=== PATIENT | female | born 1935 | race Caucasian/White ===

== ENCOUNTER 2017-10-26 10:31 | Emergency (ER) | payer MEDICARE, BC ==
--- NOTE | 2017-10-26 11:09 | Emergency Department Record ---
History of Present Illness - General Chief complaint: Extremity Problem Stated complaint: FALL/L HAND INJURY Time Seen by Provider: 10/26/17 11:02 Source: Patient Mode of Arrival: Ambulatory Limitations: No limitations - History of Present Illness Initial comments: pt fell yesterday injuring l shoulder and hand and scraped elbow. it continues to hurt Complaint: Extremity pain Location: Left, Elbow, Hand, Shoulder History of Same: No Radiation: None Quality: Aching Consistency: Constant Improves with: Nothing Worsens with: Nothing, Palpation Associated Symptoms: Denies other symptoms - Related Data Home Medications Medication Instructions Recorded Confirmed Last Taken Tramadol HCl 50 mg PO BID 10/26/17 10/26/17 10/26/17 07:00 Previous Rx's Medication Instructions Recorded Prednisone [Prednisone 20Mg] 40 mg PO DAILY #6 tab 04/01/14 Cephalexin [Keflex] 500 mg PO TID #21 cap 10/26/17 Allergies Allergy/AdvReac Type Severity Reaction Status Date / Time No Known Drug Allergies Allergy Verified 10/26/17 11:18 Review of Systems Reviewed: No additional complaints except as noted below Constitutional: Reports: As per HPI. Denies: Chills, Fever, Malaise, Night sweats, Weakness, Weight change Eyes: Reports: As per HPI. Denies: Eye discharge, Eye pain, Photophobia, Vision change ENT: Reports: As per HPI. Denies: Congestion, Dental pain, Ear pain, Epistaxis , Hearing loss, Throat pain Respiratory: Reports: As per HPI. Denies: Cough, Dyspnea, Hemoptysis, Stridor, Wheezes Cardiovascular: Reports: As per HPI. Denies: Arrhythmia, Chest pain, Dyspnea on exertion, Edema, Murmurs, Orthopnea, Palpitations, Paroxysmal nocturnal dyspnea, Rheumatic Fever, Syncope Endocrine: Reports: As per HPI. Denies: Fatigue, Heat or cold intolerance, Polydipsia, Polyuria Gastrointestinal: Reports: As per HPI. Denies: Abdominal pain, Constipation, Diarrhea, Hematemesis, Hematochezia, Melena, Nausea, Vomiting Genitourinary: Reports: As per HPI. Denies: Abnormal menses, Discharge, Dyspareunia, Dysuria, Frequency, Hematuria, Incontinence, Retention, Urgency Musculoskeletal: Reports: As per HPI. Denies: Arthralgia, Back pain, Gout, Joint swelling, Myalgia, Neck pain Skin: Reports: As per HPI. Denies: Bruising, Change in color, Change in hair/ nails, Lesions, Pruritus, Rash Neurological: Reports: As per HPI. Denies: Abnormal gait, Confusion, Headache, Numbness, Paresthesias, Seizure, Tingling, Tremors, Vertigo, Weakness Psychiatric: Reports: As per HPI. Denies: Anxiety, Auditory hallucinations, Depression, Homicidal thoughts, Suicidal thoughts, Visual hallucinations Hematological/Lymphatic: Reports: As per HPI. Denies: Anemia, Blood Clots, Easy bleeding, Easy bruising, Swollen glands Past Medical History - SOCIAL HISTORY Smoking Status: Former smoker - RESPIRATORY Hx Respiratory Disorders: Yes Hx Bronchitis: Yes Hx COPD: Yes - CARDIOVASCULAR Hx Cardio Disorders: Yes Hx Hypertension: Yes - NEURO Hx Neuro Disorders: No - GI Hx GI Disorders: No - Hx Genitourinary Disorders: No - ENDOCRINE Hx Endocrine Disorders: Yes Hx Diabetes: Yes - MUSCULOSKELETAL Hx Musculoskeletal Disorders: Yes Hx Arthritis: Yes Hx Back Injury: Yes - PSYCH Hx Psych Problems: Yes Hx Anxiety: Yes Hx Depression: Yes - HEMATOLOGY/ONCOLOGY Hx Hematology/Oncology Disorders: No Family Medical History Hx Cancer: Father Hx Heart Disease: Mother Physical Exam - General General Appearance: Alert, Oriented x3, Cooperative, Mild distress - Head Head exam: Normal inspection - Eye Eye exam: Normal appearance, PERRL, EOMI Pupils: Normal accommodation - ENT ENT exam: Normal exam, Mucous membranes moist, Normal external ear exam, Normal orophraynx Ear exam: Normal external inspection. negative: External canal tenderness Nasal Exam: Normal inspection. negative: Discharge, Sinus tenderness Mouth exam: Normal external inspection, Tongue normal Teeth exam: Normal inspection. negative: Dental caries Throat exam: Normal inspection. negative: Tonsillar erythema, Tonsillar exudate - Neck Neck exam: Normal inspection, Full ROM. negative: Tenderness - Respiratory Respiratory exam: Normal lung sounds bilaterally. negative: Respiratory distress - Cardiovascular Cardiovascular Exam: Regular rate, Normal rhythm, Normal heart sounds - GI/Abdominal GI/Abdominal exam: Soft, Normal bowel sounds. negative: Tenderness - Rectal Rectal exam: Deferred - exam: Deferred - Extremities Extremities exam: Normal inspection, Full ROM, Normal capillary refill, Tenderness Image of Full Body: 1 - tender 2 - tender 3 - erythema and abrasion - Back Back exam: Reports: Normal inspection, Full ROM. Denies: Muscle spasm, Rash noted, Tenderness - Neurological Neurological exam: Alert, CN II-XII intact, Oriented X3, Other (wheelchair bound ) - Psychiatric Psychiatric exam: Normal affect, Normal mood - Skin Skin exam: Dry, Intact, Normal color, Warm Disposition Disposition: Discharge Clinical Impression: Multiple contusions Cellulitis Qualifiers: Site of cellulitis: extremity Site of cellulitis of extremity: upper extremity Laterality: left Qualified Code(s): L03.114 - Cellulitis of left upper limb Disposition: Home, Self-Care Condition: (1) Good Instructions: Contusion in Adults (ED), Cellulitis (ED) Additional Instructions: follow up with family doctor. return sooner if worse. Prescriptions: Cephalexin [Keflex] 500 mg PO TID #21 cap Forms: Patient Portal Access Quality - Quality Measures Quality Measures: N/A - Blood Pressure Screening Does Patient Have Any of the Following: No Blood Pressure Classification: Normal BP Reading Systolic Measurement: 117 Diastolic Measurement: 48 Screening for High Blood Pressure: < Normal BP, F/U Not Required > [G8783]
[2017-10-26] MEDS ORDERED: TRAMADOL HCL 50 MG TABLET PO ONE (12:07)
--- NOTE | 2017-10-26 12:12 | RADIOLOGY REPORT ---
DATE: 10/26/2017. EXAM: LEFT SHOULDER. HISTORY: Shoulder pain. TECHNIQUE: Three views of the left shoulder. COMPARISON: None. ENCOUNTER: Initial. FINDINGS: Osteopenia. Negative for fracture or dislocation. Moderate degenerative changes. Possible loose bodies of the glenohumeral joint. IMPRESSION: OSTEOPENIA WITH MODERATE DEGENERATIVE CHANGE. POSSIBLE LOOSE BODIES. JOB NUMBER: [id number] MTDD
--- NOTE | 2017-10-26 12:14 | RADIOLOGY REPORT ---
DATE: 10/26/2017. EXAM: LEFT HAND. HISTORY: Pain. TECHNIQUE: Three views of the left hand. COMPARISON: None. ENCOUNTER: Initial. FINDINGS: Osteopenia. Advanced degenerative changes throughout the hand and wrist, especially the first carpometacarpal joint. No radiographic evidence for acute fracture or dislocation. Soft tissues are unremarkable. IMPRESSION: OSTEOPENIA WITH DEGENERATIVE CHANGE. JOB NUMBER: [id number] MTDD
== END 2017-10-26 12:22 | disposition home or self-care (01) ==
LOC: ER 10:31
DX: S40.012A Contusion of left shoulder, initial encounter (principal); S60.222A Contusion of left hand, initial encounter; L03.114 Cellulitis of left upper limb; E11.9 Type 2 diabetes mellitus without complications; I10 Essential (primary) hypertension; Z87.891 Personal history of nicotine dependence; W19.XXXA Unspecified fall, initial encounter
CPT/HCPCS: 99283

== ENCOUNTER 2018-09-14 14:26 | Inpatient (IN) | payer MEDICARE, BC ==
--- NOTE | 2018-09-14 14:43 | Emergency Department Record ---
History of Present Illness - General Chief Complaint: Fall Injury Stated Complaint: SLID TO FLOOR FROM CHAIR Source: Patient, EMS Mode of Arrival: EMS Limitations: No limitations - History of Present Illness Initial Comments: 83 yo female presents from home by EMS. She lives alone. She states that her legs have been weak and unstable for a long time. She was getting out of bed and slid to the floor. She was unable to get up. She was too weak. She has not felt well for a long time. She has trouble getting around. She has some periodic help. No head injury. No neck or chest pain. She is on home oxygen due to COPD. No nausea or vomiting. She can not recall if she had breakfast. Dr Molina is her PCP. She was on the floor for 2-3 hours. Her family was unable to get her up and EMS was called. Complaint: Fall -: Hour(s) Fall From: Out of bed When Fall Occurred: 4-6 hours [employer] Fall Witnessed: No Place Fall Occurred: Home Loss of Consciousness: None Prolonged Down Time?: Hour(s) (4) Symptoms Prior to Fall: None, Other (chronic leg weakness) Location: Other (hips hurt) Severity: Moderate Quality: Other Context: History of frequent falls Associated Symptoms: Denies - [place] Coma Scale Eye Response: (4) Open spontaneously Motor Response: (6) Obeys commands Verbal Response: (5) Oriented [place] Total: 15 - Related Data Home Medications Medication Instructions Recorded Confirmed Last Taken Furosemide [Lasix] 40 mg PO DAILY 09/14/18 09/14/18 09/14/18 Gabapentin [Neurontin] 600 mg PO BID 09/14/18 09/14/18 09/14/18 Hydroxyzine HCl 25 mg PO DAILY 09/14/18 09/14/18 09/14/18 Insulin Degludec [Tresiba 70 units SQ DAILY 09/14/18 09/14/18 09/14/18 Flextouch U-200] Metformin HCl [Metformin HCl ER] 500 mg PO BID 09/14/18 09/14/18 09/14/18 Potassium Chloride [Klor-Con M20] 20 meq PO DAILY 09/14/18 09/14/18 09/14/18 Pramipexole Di-HCl [Pramipexole ER] 0.75 mg PO QHS 09/14/18 09/14/18 09/13/18 Allergies Allergy/AdvReac Type Severity Reaction Status Date / Time No Known Drug Allergies Allergy Verified 09/14/18 14:28 Review of Systems Constitutional: Reports: Malaise, Weakness. Denies: Chills, Fever Eyes: Denies: Eye discharge, Photophobia, Vision change ENT: Denies: Congestion, Throat pain Respiratory: Denies: Cough, Dyspnea Cardiovascular: Denies: Chest pain, Syncope Endocrine: Reports: Fatigue Gastrointestinal: Denies: Abdominal pain, Diarrhea, Nausea, Vomiting Genitourinary: Denies: Dysuria, Urgency Musculoskeletal: Reports: Arthralgia, Myalgia. Denies: Joint swelling, Neck pain Skin: Denies: Bruising, Change in color Neurological: Reports: Weakness. Denies: Confusion, Headache, Numbness, Vertigo Psychiatric: Denies: Anxiety Hematological/Lymphatic: Denies: Blood Clots, Easy bleeding, Easy bruising, Swollen glands Past Medical History - SOCIAL HISTORY Smoking Status: Former smoker - RESPIRATORY Hx Respiratory Disorders: Yes Hx Bronchitis: Yes Hx COPD: Yes - CARDIOVASCULAR Hx Cardio Disorders: Yes Hx Hypertension: Yes - NEURO Hx Neuro Disorders: No - GI Hx GI Disorders: No - Hx Genitourinary Disorders: No - ENDOCRINE Hx Endocrine Disorders: Yes Hx Diabetes: Yes - MUSCULOSKELETAL Hx Musculoskeletal Disorders: Yes Hx Arthritis: Yes Hx Back Injury: Yes - PSYCH Hx Psych Problems: Yes Hx Anxiety: Yes Hx Depression: Yes - HEMATOLOGY/ONCOLOGY Hx Hematology/Oncology Disorders: No Family Medical History Hx Cancer: Father Hx Heart Disease: Mother Physical Exam - General General Appearance: Alert, Oriented x3, Cooperative, Other (Appears alert, somewhat disheveled, dry mouth, lips, and teeth) - Head Head exam: Atraumatic, Normocephalic, Normal inspection - Eye Eye exam: Normal appearance, PERRL. negative: Conjunctival injection - ENT ENT exam: Mucous membranes dry. negative: Mucous membranes moist Ear exam: Normal external inspection Nasal Exam: Normal inspection Mouth exam: negative: Normal external inspection - Neck Neck exam: Normal inspection. negative: Tenderness - Respiratory Respiratory exam: Decreased breath sounds, Wheezes (mild). negative: Respiratory distress, Rhonchi, Stridor - Cardiovascular Cardiovascular Exam: Regular rate, Normal rhythm, Normal heart sounds - GI/Abdominal GI/Abdominal exam: Soft. negative: Tenderness - Rectal Rectal exam: Deferred - exam: Deferred - Extremities Extremities exam: Full ROM, Tenderness. negative: Normal inspection (chronic stasis changes), Calf tenderness Image of Full Body: 1 - tender left lateral hip, same length as right but pain with movement - Back Back exam: Denies: CVA tenderness (R), CVA tenderness (L) - Neurological Neurological exam: Alert, Oriented X3. negative: Motor sensory deficit - Psychiatric Psychiatric exam: Depressed. negative: Agitated, Anxious - Skin Skin exam: Dry, Intact, Normal color, Warm Course - Reevaluation(s) Reevaluation #1: 09/14/18 16:17 The labs were reviewed The CBC was without significant changes The CMP demonstrated HCO3 of 37, BUN of 26, CR of 1.7, GFR of 30, The Troponin is normal The ProBNP is 466 The UA was consistent with UTI with N+,LE+,TNTC WBC and +4 Bacteria The HCT was negative for acute process The Pelvic CT negative for acute injury The case was reviewed with Dr Zavala for admission for IV antibiotics, Medical Decision Making - Lab Data Result diagrams: 09/14/18 14:45 09/14/18 14:45 Disposition Disposition: Admit Clinical Impression: Fall, Physical deconditioning, Urinary tract infection, Dehydration, Renal insufficiency Disposition: Still a Patient at [facility] Decision to Admit: Admit from ER Decision to Admit Date: 09/14/18 Decision to Admit Time: 15:36 Condition: (3) Guarded Time of Disposition: 15:36 Quality - Quality Measures Quality Measures: N/A - Blood Pressure Screening Does Patient Have Any of the Following: Active Dx of HTN Blood Pressure Classification: Hypertensive Reading Systolic Measurement: 149 Diastolic Measurement: 71 Screening for High Blood Pressure: Patient Exclusion, Hx of HTN [G9744]
[2018-09-14 14:56] LABS: BASO % 0.5 % (0-6); EOS % 0.6 % (0-6); GRAN % 70.4 % (47-80); HEMATOCRIT 36.9 % (35.0-47.0); HEMOGLOBIN 10.9 gm/dl (11.6-16.0); LYMPH % 18.3 % (16-45); MEAN CELL VOLUME 88.9 fl (81-97); MEAN CORPUSCULAR HGB CONC 29.5 g/dl (32-36); MEAN PLATELET VOLUME 9.1 fl (7.4-10.4); MONO % 10.2 % (0-9); PLATELET COUNT 241 K/uL (130-400); RED BLOOD COUNT 4.15 M/uL (3.80-5.40); RED CELL DISTRIBUTION WIDTH 15.3 % (11.5-14.5); WHITE BLOOD COUNT W/O DIFF 6.7 K/uL (4.2-12.2)
[2018-09-14 14:57] LABS: MEAN CORPUSCULAR HEMOGLOBIN 26.2 pg (27-33)
[2018-09-14 15:09] LABS: BLOOD UREA NITROGEN 26 mg/dL (8-23); CREATININE 1.7 mg/dL (0.5-0.9); EST GLOMERULAR FILTRATION RATE 30 mL/min
[2018-09-14 15:10] LABS: TOTAL PROTEIN 7.6 g/dL (6.6-8.7)
[2018-09-14 15:12] LABS: GLUCOSE,RANDOM 124 mg/dL (74-109)
[2018-09-14 15:15] LABS: ALB/GLOB RATIO 0.9 (1.1-1.8); ALBUMIN 3.6 g/dL (4.0-5.0); ALKALINE PHOSPHATASE 115 U/L (35-104); ALT/SGPT 14 U/L (<33); AST/SGOT 47 U/L (10.0-35.0)
[2018-09-14 15:20] LABS: URINE APPEARANCE CLOUDY; URINE BILIRUBIN NEGATIVE (NEGATIVE); URINE BLOOD MODERATE (NEGATIVE); URINE COLOR YELLOW; URINE GLUCOSE (UA) NEGATIVE (NEGATIVE); URINE KETONE NEGATIVE (NEGATIVE); URINE LEUKOCYTE ESTERASE LARGE (NEGATIVE); URINE NITRITE POSITIVE (NEGATIVE); URINE UROBILINOGEN 0.2 E.U./dL (0.20 - 1.00)
[2018-09-14 15:25] LABS: THYROID STIMULATING HORMONE 1.48 uIU/mL (0.270-4.20)
[2018-09-14 15:28] LABS: URINE BACTERIA 4+; URINE EPITHELIAL CELLS 0 - 2 (FEW)
[2018-09-14] MEDS ORDERED: CEFTRIAXONE SODIUM 1 GM in 0.9 % SODIUM CHLORIDE 100ML 100 ML IVPB ONE (15:34)
[2018-09-14] MEDS ORDERED: 0.9 % SODIUM CHLORIDE 1000ML 1,000 ML IV PRN (17:37)
[2018-09-14] MEDS ORDERED: ALBUTEROL HFA 8 GM INHALER INH PRN (17:37)
[2018-09-14] MEDS ORDERED: ACETAMINOPHEN 325 MG TAB PO PRN (17:37)
[2018-09-14] MEDS ORDERED: PRAMIPEXOLE DI HCL 0.75 MG PO SCH (22:00)
[2018-09-14] MEDS: GABAPENTIN 300 MG CAPSULE PO SCH (22:33)
[2018-09-14] MEDS: SIMVASTATIN 20 MG TABLET PO SCH (22:33)
[2018-09-14] MEDS: [UNRECOGNIZED DRUG - OTHER] PO SCH (22:50)
[2018-09-14] MEDS: PRAMIPEXOLE PO SCH (22:50)
[2018-09-15] MEDS: PANTOPRAZOLE SODIUM 40 MG TABLET PO SCH ×2 (05:55→06:08)
[2018-09-15 06:47] LABS: CREATININE 1.7 mg/dL (0.5-0.9)
--- NOTE | 2018-09-15 09:36 | Rehab Evaluation ---
Patient Information - Patient Information Diagnosis: UTI, deconditioned Ordered Treatment: PT Evaluate and Treat Status: Initial Evaluation History: Detail (Patient presented to ED on 09/14 after a fall injury, patient slide to floor from her lift chair. The patient was transferred to inpatient floor.) Past Medical/Surgical Hx: PAST MEDICAL/SURGICAL HISTORY Past Surgical History hysterectomy cholecystectomy hip PMH - Respiratory Hx Respiratory Disorders Yes Hx Bronchitis Yes Hx Chronic Obstructive Yes Pulmonary Disease (COPD) PMH - Cardiovascular Hx Cardiovascular Disorders Yes Hx Hypertension Yes PMH - Neuro Hx Neurological Disorders No PMH - GI Hx Gastrointestinal Disorders No PMH - Hx Genitourinary Disorders No Hx Bladder Problem Yes: incontinence PMH - Endocrine Hx Endocrine Disorders Yes Hx Diabetes Yes PMH - Musculoskeletal Hx Musculoskeletal Disorders Yes Hx Arthritis Yes Hx Back Injury Yes PMH - Psych Hx Psychiatric Problems Yes Hx Anxiety Yes Hx Depression Yes PMH - Hematology/Oncology Hx Hematology/Oncology No Disorders Premorbid Status: Detail (Per her report the patient was ambulatory with a 4 wheeled walker household distances and was independent with dressing. The patient 's daughter assists her with bathing and she has a test evaluator who comes once a week to clean. The patient was making her own meals which consisted of primarily microwave dinners.) Social History: Detail (The patient lives alone in an apartment with no stairs at the enterance. The patient's bathroom is equipped wtih a walk in shower with a seat and grab bars and a standard toilet with grab bars. The patient has a lift chair, home O2, lympheda pump and 4 wheeled walker.) Precautions: [place], Fall, Other (MRSA) - Time With Patient Total Time Spent With Patient (Min): 30 Treatment Procedures: Detail (Initial Evaluation.) Subjective Information - Subjective Information Per Patient (The patient had complaints of R side facial and neck pain, R hip pain and bilateral feet pain when ambulating. The patient did not rate her pain using 0-10 pain scale.) Objective Data - Mental Status Patient Orientation: Oriented x3 - Visual Perception Appears within normal limits for therapeutic activities - ROM Not within normal limits (The patient's UE AROM was WFL and LE AROM was WFL except for minimal limitations with bilateral dorsiflexion.) - Strength/Tone Not within normal limits (The patient's UE strength was generally 4+ to 5/5. The patient's LE strength was hip musculature R 4-/5, L 4/5, knee musculature was 4+/5, ankle plantar flexors were 4/5, unable to asess dorsiflexors due to pain with resistance however functionally 3 to 3-/5.) - Bed Mobility Needs Assist (The patient's bed mobilty was not assessed secondary to patient up in chair.) - Transfers Independent (The patient was independent with sit to and from stand, however the patient pulled up on walker and required verbal cues for proper technique.) - Balance Balance Sitting: Good Balance Standing: Fair (The patient required the walker for support. Patient's balance was not formally tested using a objective balance test.) - Sensation Deficit (Numbness and tingling in bilateral hands and feet per patients report. Minimal decrease to light touch to bilateral hands and feet.) - Gait Detail (The patient ambulated with front wheeled walker a distance of 10 feet x 1 with CG for safety with 2L of O2. The patient was short of breath after ambulating.) - Special Tests Yes (Inspection: The patient exhibited bilateral LE edema and apparent vascular changes.) Therapy Assessment - Therapy Assessment Detail (The patient exhibited decreased LE strength and decreased ability to complete prolonged physical acitivity ie: shortness of breath after ambulating a short distance. Feel the patient would benefit from PT to return to previous functional level. PT evaluation complexity is rated as low.) Problem List - Problem List Physical Therapy Problem List: Detail (1) Decreased LE strength deficits and LE edema. 2) Shortness of breath with ambulation. 3) Decreased ability to complent prolonged physical activity.) Goals - Goals Physical Therapy Goals: 1) Assess the patient using objective balance test ie: [place]. 2) Assess bed mobility. 3) The patient will ambulate independently distances of 30 to 40 feet with appropriate assistive device. 4) Increase LE strength to improve stability of gait. 5) The patient will tolerate 20 minutes of physical activity with one to two rest periods. Prognosis - Prognosis Moderate Plan - Plan Physical Therapy Plan: PT daily for gait training, LE strengthening and muscular endurance and balance exercises.
[2018-09-15] MEDS ORDERED: INSULIN DEGLUDEC 70 UNIT SQ SCH (10:00)
[2018-09-15] MEDS: INSULIN DEGLUDEC SC SCH (10:14)
[2018-09-15] MEDS: DULOXETINE HCL 30 MG CAPSULE.DR PO SCH (10:16)
[2018-09-15] MEDS: FLUOXETINE HCL 10 MG CAPSULE PO SCH (10:16)
[2018-09-15] MEDS: ASPIRIN 81 MG CHEWABLE TABLET PO SCH (10:16)
[2018-09-15] MEDS: GABAPENTIN 300 MG CAPSULE PO SCH ×2 (10:16→21:31)
--- NOTE | 2018-09-15 10:29 | History & Physical ---
History of Present Illness - Date of Service Date of Service for History & Physical: 09/15/18 - History of Present Illness Admitting Diagnosis: UTI, weak, deconditioned History of Present Illness: Mrs Arredondo is a 83 y/o female with fall yesterday while at home. She says that she was in her chair and fell asleep when she slid out of the chair onto the floor. She was on the floor for about 4 hours until her son came home at around 5 in the afternoon. She says that she fell on her right side and she has some pain of her right hip and rib area. She denies dizziness or loss of consciousness but says that she felt a little weak. The patient lives alone at home and uses a motorized lift chair. She has COPD requiring 2 liters continuous oxygen therapy. On presentation to the ED the patient was noted to have acute on chronic kidney injury and UA positive for leukocytes and nitrites. She is being admitted to the general medical floor for IV antibiotics, IVF hydration and physical therapy for weakness and deconditioning. CT head: negative for acute intracranial process CT pelvis: no fracture Significant labs: UA + leukocytes, nitrites and +4 bacteria, Bun/CR/Gfr: 26/1. Travel Screening - Travel/Exposure Within Last 30 Days Have you traveled within the last 30 days?: No - Travel/Exposure Within Last Year Have you traveled outside the [place] in the last year?: No - Additonal Travel Details Have you been exposed to anyone with a communicable illness?: No - Travel Symptoms Symptom Screening: None Review of Systems Constitutional: Reports: Weakness. Denies: Chills, Fever Eyes: Denies: Eye discharge, Photophobia, Vision change ENT: Denies: Congestion, Throat pain Respiratory: Denies: Cough, Dyspnea Cardiovascular: Denies: Chest pain, Syncope Endocrine: Reports: Fatigue Gastrointestinal: Denies: Abdominal pain, Diarrhea, Nausea, Vomiting Genitourinary: Denies: Dysuria, Urgency Musculoskeletal: Reports: Arthralgia, Myalgia. Denies: Joint swelling, Neck pain Skin: Denies: Bruising, Change in color Neurological: Reports: Weakness. Denies: Confusion, Headache, Numbness, Vertigo Psychiatric: Denies: Anxiety Hematological/Lymphatic: Denies: Blood Clots, Easy bleeding, Easy bruising, Swollen glands Past Medical History - SOCIAL HISTORY Smoking Status: Former smoker - RESPIRATORY Hx Respiratory Disorders: Yes Hx Bronchitis: Yes Hx COPD: Yes - CARDIOVASCULAR Hx Cardio Disorders: Yes Hx Hypertension: Yes - NEURO Hx Neuro Disorders: No - GI Hx GI Disorders: No - Hx Genitourinary Disorders: No - ENDOCRINE Hx Endocrine Disorders: Yes Hx Diabetes: Yes - MUSCULOSKELETAL Hx Musculoskeletal Disorders: Yes Hx Arthritis: Yes Hx Back Injury: Yes - PSYCH Hx Psych Problems: Yes Hx Anxiety: Yes Hx Depression: Yes - HEMATOLOGY/ONCOLOGY Hx Hematology/Oncology Disorders: No Family Medical History Hx Cancer: Father Hx Heart Disease: Mother H&P Meds/Allergies - Allergies Allergies: Allergies Allergy/AdvReac Type Severity Reaction Status Date / Time No Known Drug Allergies Allergy Verified 09/14/18 14:28 - Home Medications Home Medications Medication Instructions Recorded Confirmed Last Taken Furosemide [Lasix] 40 mg PO DAILY 09/14/18 09/14/18 09/14/18 Gabapentin [Neurontin] 600 mg PO BID 09/14/18 09/14/18 09/14/18 Hydroxyzine HCl 25 mg PO DAILY 09/14/18 09/14/18 09/14/18 Insulin Degludec [Tresiba 70 units SQ DAILY 09/14/18 09/14/18 09/14/18 Flextouch U-200] Metformin HCl [Metformin HCl ER] 500 mg PO BID 09/14/18 09/14/18 09/14/18 Potassium Chloride [Klor-Con M20] 20 meq PO DAILY 09/14/18 09/14/18 09/14/18 Pramipexole Di-HCl [Pramipexole ER] 0.75 mg PO QHS 09/14/18 09/14/18 09/13/18 - Active Medications Active Medications: Current Medications Acetaminophen (Tylenol 325mg) 650 mg PO Q6H PRN PRN Reason: PAIN - MILD(1-4)/FEVER Albuterol Sulfate (Ventolin Hfa) 2 puff INH Q4HR PRN PRN Reason: RESPIRATORY TREATMENT Aspirin (Aspirin Chewable) 81 mg PO DAILY [facility] Last Admin: 09/15/18 10:16 Dose: 81 mg Duloxetine HCl (Cymbalta) 30 mg PO DAILY [facility] Last Admin: 09/15/18 10:16 Dose: 30 mg Fluoxetine HCl (Prozac) 20 mg PO DAILY [facility] Last Admin: 09/15/18 10:16 Dose: 20 mg Gabapentin (Neurontin) 600 mg PO BID [facility] Last Admin: 09/15/18 10:16 Dose: 600 mg Sodium Chloride () 1,000 mls @ 75 mls/hr IV .[id number] PRN PRN Reason: LARGE VOLUME IV CEFTRIAXONE 1GM/50ML BAG (Ceftriaxone 1 Gm-D5w Bag) 1 gm in 50 mls @ 100 mls/ hr IVPB Q24H [facility] Pantoprazole Sodium (Protonix) 40 mg PO DAILYAC [facility] Last Admin: 09/15/18 06:08 Dose: Not Given Patient Own Med: Pramiprexole Di-Hcl 0.75 M G 1 each PO QHS [facility] Last Admin: 09/14/18 22:50 Dose: 1 each Patient Own Med: Insulin Degludec ( Tresiba Flextouch) 70 each SC DAILY [facility] Last Admin: 09/15/18 10:14 Dose: 70 each Simvastatin (Zocor) 20 mg PO QHS [facility] Last Admin: 09/14/18 22:33 Dose: 20 mg Physical Exam - Vital Signs Vital Signs: Vital Signs - Last 24 Hrs Temp Pulse Pulse Resp BP BP Pulse Ox 09/15/18 08:00 97.2 F L 72 18 154/52 97 09/15/18 05:40 99 09/15/18 04:00 97.5 F L 74 17 155/65 97 09/14/18 22:55 95 09/14/18 20:40 82 24 09/14/18 20:00 98.8 F 83 18 147/91 100 09/14/18 18:18 24 09/14/18 17:37 97.9 F 82 16 160/60 94 L 09/14/18 14:41 99.5 F 98 H 24 149/71 95 - General General Appearance: Alert, Oriented x3, Cooperative, Other (Appears alert, somewhat disheveled, dry mouth, lips, and teeth) Limitations: No limitations - Head Head exam: Atraumatic, Normocephalic, Normal inspection - Eye Eye exam: Normal appearance, PERRL. negative: Conjunctival injection - ENT ENT exam: Mucous membranes dry. negative: Mucous membranes moist Ear exam: Normal external inspection Nasal Exam: Normal inspection Mouth exam: negative: Normal external inspection - Neck Neck exam: Normal inspection. negative: Tenderness - Respiratory Respiratory exam: Decreased breath sounds, Wheezes (mild). negative: Respiratory distress, Rhonchi, Stridor - Cardiovascular Cardiovascular Exam: Regular rate, Normal rhythm, Normal heart sounds Peripheral Pulses: 2+: Dorsalis Pedis (R), Dorsalis Pedis (L), 3+: Radial (R), Radial (L) - GI/Abdominal GI/Abdominal exam: Soft. negative: Tenderness - Rectal Rectal exam: Deferred - exam: Deferred - Extremities Extremities exam: Full ROM, Tenderness. negative: Normal inspection (chronic stasis changes), Calf tenderness - Back Back exam: Denies: CVA tenderness (R), CVA tenderness (L) - Neurological Neurological exam: Alert, Oriented X3. negative: Motor sensory deficit - Psychiatric Psychiatric exam: negative: Agitated, Anxious - Skin Skin exam: Dry, Intact, Normal color, Warm Results - Labs Result Diagrams: 09/14/18 14:45 09/15/18 06:27 Labs Last 24 Hours: Laboratory Results - last 24 hr 09/14/18 09/14/18 09/14/18 14:45 14:45 15:15 WBC 6.7 RBC 4.15 Hgb 10.9 L Hct 36.9 MCV 88.9 MCH 26.2 L MCHC 29.5 L RDW 15.3 H Plt Count 241 MPV 9.1 Gran % 70.4 Lymphocytes % 18.3 Monocytes % 10.2 H Eosinophils % 0.6 Basophils % 0.5 Sodium 144 Potassium 4.1 Chloride 97 L Carbon Dioxide 37.0 H Anion Gap 10.0 BUN 26 H Creatinine 1.7 H Estimated GFR 30 POC Glucose Random Glucose 124 H Calcium 9.7 Total Bilirubin 0.40 AST 47 H ALT 14 Alkaline Phosphatase 115 H Troponin T < 0.010 NT-Pro-B Natriuret Pep 466.30 H Total Protein 7.6 Albumin 3.6 L Globulin 4.0 Albumin/Globulin Ratio 0.9 L TSH 1.48 Urine Color Yellow Urine Appearance Cloudy Urine pH 8.5 Ur Specific [place] 1.015 Urine Protein 30 mg/dl H Urine Glucose (UA) Negative Urine Ketones Negative Urine Blood Moderate Urine Nitrite Positive H Urine Bilirubin Negative Urine Urobilinogen 0.2 Ur Leukocyte Esterase Large H Urine RBC 7 - 10 Urine WBC Too numerous to cnt Ur Epithelial Cells 0 - 2 Urine Bacteria 4+ 1209/15/18 09/15/18 23:40 06:27 08:16 WBC RBC Hgb Hct MCV MCH MCHC RDW Plt Count MPV Gran % Lymphocytes % Monocytes % Eosinophils % Basophils % Sodium 144 Potassium 3.4 Chloride 97 L Carbon Dioxide 39.0 H Anion Gap 8.0 BUN 28 H Creatinine 1.7 H Estimated GFR 30 POC Glucose 189 H 113 H Random Glucose 120 H Calcium 9.3 Total Bilirubin AST ALT Alkaline Phosphatase Troponin T NT-Pro-B Natriuret Pep Total Protein Albumin Globulin Albumin/Globulin Ratio TSH Urine Color Urine Appearance Urine pH Ur Specific [place] Urine Protein Urine Glucose (UA) Urine Ketones Urine Blood Urine Nitrite Urine Bilirubin Urine Urobilinogen Ur Leukocyte Esterase Urine RBC Urine WBC Ur Epithelial Cells Urine Bacteria VTE H&P Assessment - Risk for VTE Risk for VTE: Yes Risk Level: High Risk Assessment Date: 09/15/18 Risk Assessment Time: 10:30 VTE Orders Placed or Will Be Placed: Yes Plan - Inpatient Certification Inpatient Certification: Admit to inpatient care: Based on my medical assessment, after consideration of patient's risk factors (age, co-morbidities and patient presenting symptoms and acuity), I expect that this patient will remain in the hospital greater than or equal to two midnights and that the services needed warrant inpatient care because: Patient Risk Factors: Deconditioning/Fall/UTI Estimated length of stay: At least 2 midnights The patient may reasonably be expected to be discharged or transferred to a hospital within 96 hours after admission to [facility]. Services needed: PT/OT/[employer] Post hospital care (if known): Home care, PT/OT I certify that my determination is in accordance with my understanding of Medicare requirements for reasonable and necessary inpatient services. 09/15/18 17:16 - Detailed Diagnosis and Plan (1) Urinary tract infection Current Visit: Yes Status: Acute Qualifiers: Urinary tract infection type: acute cystitis Base Code: N39.0 - URINARY TRACT INFECTION, SITE NOT SPECIFIED Comment: 09/15/18: - UA + for leukocytes, nitirites and +4 bacteria - UCX pending - Continue on Rocephin 1 gm daily. (2) Renal insufficiency Current Visit: Yes Status: Acute Base Code: N28.9 - DISORDER OF KIDNEY AND URETER, UNSPECIFIED Comment: 09/15/18: - BUN/Cr/Gfr: 26/1.7/30, likely acute on chronic prerenal due to dehydration. - Continue fluid challenge with IVF 0.9% Nacl @ 75mL/hr - Hold Lisinopril/HCTZ, Metformin and Glipizide. - Avoid nephrotoxic agents and repeat electrolytes with morning labs. (3) Fall Current Visit: Yes Status: Acute Base Code: W19.XXXA - UNSPECIFIED FALL, INITIAL ENCOUNTER Priority: Medium Comment: 09/15/18: - Mechanical fall at home. Low impact from seated position. - CT head - negative, CT pelvis - negative for acute injury/fracture. - Tylenol 650mg Q6H PRN - Fall precuations with bed alarm and assistance with ambulation. - PT/OT consulted (4) Physical deconditioning Current Visit: Yes Status: Acute Base Code: R53.81 - OTHER MALAISE Comment : 09/15/18: - Resulting in fall at home. Limited ambulation and uses lift chair at home. - Is indenpendent of some ADLs - PT/OT consulted (5) Diabetes mellitus, type II Current Visit: Yes Status: Chronic Qualifiers: Diabetes mellitus assisted insulin use: with intermediate school teacher use Diabetes mellitus complication status: with neurologic complications Diabetes mellitus complication detail: with polyneuropathy Qualified Code(s): E11.42 - Type 2 diabetes mellitus with diabetic polyneuropathy; Z79.4 - care home (current) use of insulin Base Code: E11.9 - TYPE 2 DIABETES MELLITUS WITHOUT COMPLICATIONS Comment: 09/15/18: - On Tresiba ultra long acting insulin 70 units daily. - Hold Metformin and Glipizide and start low dose sliding scale. - Random glucose target <180mg/dL, prepandial <140. - AcHs, ADA diet ordered (6) COPD (chronic obstructive pulmonary disease) Current Visit: Yes Status: Chronic Base Code: J44.9 - CHRONIC OBSTRUCTIVE PULMONARY DISEASE, UNSPECIFIED Comment: 09/15/18: - Stable on 2 liters nasal cannula oxygen. - Continue on Breo and Albuterol Q4H PRN (7) DVT prophylaxis Current Visit: Yes Status: Acute Base Code: [id number] - Comment: 09/15/18: - High risk due to multiple comorbidities and limited ambulation. - Lovenox 40mg SQ daily. (8) DNR (do not resuscitate) Current Visit: Yes Status: Acute Base Code: Z66 - DO NOT RESUSCITATE Comment: 09/15/18: - Patient is DNR.
[2018-09-15] MEDS ORDERED: NOVOLOG FLEXPEN (INSULIN ASPART) 100 UNITS/ML SQ ONE (11:48)
[2018-09-15] MEDS: BREO (FLUTICASONE/VILANTEROL) 100MCG/25MCG INHALER INH SCH (13:07)
[2018-09-15] MEDS ORDERED: CEFTRIAXONE 1GM/50ML BAG 1 GM/50 ML BAG IVPB SCH (15:00)
[2018-09-15] MEDS ORDERED: ENOXAPARIN 40 MG/0.4 ML SYR SQ SCH (17:30)
[2018-09-15] MEDS: NOVOLOG FLEXPEN (INSULIN ASPART) 100 UNITS/ML SQ SCH (18:02)
[2018-09-15] MEDS ORDERED: DIPHENHYDRAMINE HCL 25 MG CAPSULE PO PRN (21:26)
[2018-09-15] MEDS: SIMVASTATIN 20 MG TABLET PO SCH (21:31)
[2018-09-15] MEDS: [UNRECOGNIZED DRUG - OTHER] PO SCH (21:32)
[2018-09-15] MEDS: PRAMIPEXOLE PO SCH (21:32)
[2018-09-16] MEDS: PANTOPRAZOLE SODIUM 40 MG TABLET PO SCH (06:35)
[2018-09-16 06:53] LABS: BASO % 0.4 % (0-6); EOS % 3.7 % (0-6); GRAN % 47.8 % (47-80); HEMATOCRIT 32.9 % (35.0-47.0); HEMOGLOBIN 9.3 gm/dl (11.6-16.0); LYMPH % 38.3 % (16-45); MEAN CELL VOLUME 89.6 fl (81-97); MEAN CORPUSCULAR HEMOGLOBIN 25.3 pg (27-33); MEAN CORPUSCULAR HGB CONC 28.3 g/dl (32-36); MEAN PLATELET VOLUME 9.2 fl (7.4-10.4); MONO % 9.8 % (0-9); PLATELET COUNT 183 K/uL (130-400); RED BLOOD COUNT 3.67 M/uL (3.80-5.40); RED CELL DISTRIBUTION WIDTH 15.4 % (11.5-14.5); WHITE BLOOD COUNT W/O DIFF 5.4 K/uL (4.2-12.2)
[2018-09-16 07:02] LABS: CREATININE 1.4 mg/dL (0.5-0.9)
[2018-09-16] MEDS: NOVOLOG FLEXPEN (INSULIN ASPART) 100 UNITS/ML SQ SCH (08:13)
[2018-09-16] MEDS: INSULIN DEGLUDEC SC SCH (09:11)
[2018-09-16] MEDS: GABAPENTIN 300 MG CAPSULE PO SCH (09:13)
[2018-09-16] MEDS: FLUOXETINE HCL 10 MG CAPSULE PO SCH (09:13)
[2018-09-16] MEDS: DULOXETINE HCL 30 MG CAPSULE.DR PO SCH (09:14)
[2018-09-16] MEDS: ASPIRIN 81 MG CHEWABLE TABLET PO SCH (09:14)
[2018-09-16] MEDS: BREO (FLUTICASONE/VILANTEROL) 100MCG/25MCG INHALER INH SCH (09:23)
[2018-09-16] MEDS ORDERED: LISINOPRIL 20 MG TABLET PO SCH (10:00)
[2018-09-16] MEDS ORDERED: ENOXAPARIN 30 MG/0.3 ML SYR SQ SCH (10:00)
--- NOTE | 2018-09-16 10:26 | Discharge Summary ---
Providers Discharge Summary Date: 09/16/18 Date of admission: 09/14/18 17:25 Attending physician: CAITIE STANLEY Primary care physician: SAMEER CASTRO D.O. Consults: Consult Orders 09/14/18 19:46 Consult - Case Management Now Comment: Reason For Exam: safety of pt Physical Exam - Vital Signs Vital Signs: Vital Signs - Last 24 Hrs Temp Pulse Pulse Resp BP BP Pulse Ox 09/16/18 09:23 89 18 99 09/16/18 08:30 20 09/16/18 08:00 97.6 F 94 H 16 105/60 96 09/16/18 06:10 99 09/16/18 04:00 97.9 F 81 16 171/76 97 09/15/18 21:00 12 09/15/18 20:00 97.7 F 76 17 172/72 98 09/15/18 16:12 97.5 F L 124/35 09/15/18 16:00 97.7 F 71 18 141/50 99 09/15/18 13:07 90 09/15/18 11:37 97.5 F L 73 18 124/35 98 - General General Appearance: Alert, Oriented x3, Cooperative, Other (Appears alert, somewhat disheveled, dry mouth, lips, and teeth) Limitations: No limitations - Head Head exam: Atraumatic, Normocephalic, Normal inspection - Eye Eye exam: Normal appearance, PERRL. negative: Conjunctival injection - ENT ENT exam: Mucous membranes dry. negative: Mucous membranes moist Ear exam: Normal external inspection Nasal Exam: Normal inspection Mouth exam: negative: Normal external inspection - Neck Neck exam: Normal inspection. negative: Tenderness - Respiratory Respiratory exam: Decreased breath sounds, Wheezes (mild). negative: Respiratory distress, Rhonchi, Stridor - Cardiovascular Cardiovascular Exam: Regular rate, Normal rhythm, Normal heart sounds Peripheral Pulses: 2+: Dorsalis Pedis (R), Dorsalis Pedis (L), 3+: Radial (R), Radial (L) - GI/Abdominal GI/Abdominal exam: Soft. negative: Tenderness - Rectal Rectal exam: Deferred - exam: Deferred - Extremities Extremities exam: Full ROM, Tenderness. negative: Normal inspection (chronic stasis changes), Calf tenderness - Back Back exam: Denies: CVA tenderness (R), CVA tenderness (L) - Neurological Neurological exam: Alert, Oriented X3. negative: Motor sensory deficit - Psychiatric Psychiatric exam: negative: Agitated, Anxious - Skin Skin exam: Dry, Intact, Normal color, Warm Hospitalization - Hospitalization Admission Diagnosis: UTI, weak, deconditioned - Problem List/Discharge Diagnosis (1) Urinary tract infection Current Visit: Yes Status: Acute Discharge Diagnosis: Urinary tract infection type: acute cystitis Base Code: N39.0 - URINARY TRACT INFECTION, SITE NOT SPECIFIED Comment: 09/16/18: - UA + for leukocytes, nitirites and +4 bacteria - UCX pending - Continue on Rocephin 1 gm daily. Changing to Cefdinir 300mg x 6 days. (2) Renal insufficiency Current Visit: Yes Status: Acute Base Code: N28.9 - DISORDER OF KIDNEY AND URETER, UNSPECIFIED Comment: 09/15/18: Improving - BUN/Cr/Gfr: 26/1.7/30, likely acute on chronic prerenal due to dehydration. - Continue fluid challenge with IVF 0.9% Nacl @ 75mL/hr - Hold Lisinopril/HCTZ, Metformin and Glipizide. - Avoid nephrotoxic agents and repeat electrolytes with morning labs. (3) Fall Current Visit: Yes Status: Acute Base Code: W19.XXXA - UNSPECIFIED FALL, INITIAL ENCOUNTER Comment: 09/16/18: - Mechanical fall at home. Low impact from seated position. - CT head - negative, CT pelvis - negative for acute injury/fracture. - Tylenol 650mg Q6H PRN - Fall precuations with bed alarm and assistance with ambulation. - PT/OT consulted (4) Physical deconditioning Current Visit: Yes Status: Acute Base Code: R53.81 - OTHER MALAISE Comment : 09/16/18: - Resulting in fall at home. Limited ambulation and uses lift chair at home. - Is indenpendent of some ADLs - PT/OT consulted and evaluated pt. Pt ambulatory with assistance. (5) Diabetes mellitus, type II Current Visit: Yes Status: Chronic Discharge Diagnosis: Diabetes mellitus retirement insulin use: with oysterman use Diabetes mellitus complication status: with neurologic complications Diabetes mellitus complication detail: with polyneuropathy Qualified Code(s): E11.42 - Type 2 diabetes mellitus with diabetic polyneuropathy; Z79.4 - oysterman (current) use of insulin Base Code: E11.9 - TYPE 2 DIABETES MELLITUS WITHOUT COMPLICATIONS Comment: 09/16/18: - Hypoglycemic event overnight. No clinical symptoms. Pt given orange juice and improved. - On Tresiba ultra long acting insulin 70 units daily. - Hold Metformin and Glipizide and start low dose sliding scale. - Random glucose target <180mg/dL, prepandial <140. - AcHs, ADA diet ordered (6) COPD (chronic obstructive pulmonary disease) Current Visit: Yes Status: Chronic Base Code: J44.9 - CHRONIC OBSTRUCTIVE PULMONARY DISEASE, UNSPECIFIED Comment: 09/16/18: - Stable on 2 liters nasal cannula oxygen. - Continue on Breo and Albuterol Q4H PRN (7) DVT prophylaxis Current Visit: Yes Status: Acute Base Code: [id number] - Comment: 09/16/18: - High risk due to multiple comorbidities and limited ambulation. - Lovenox 40mg SQ daily. (8) DNR (do not resuscitate) Current Visit: Yes Status: Acute Base Code: Z66 - DO NOT RESUSCITATE Comment: 09/16/18: - Patient is DNR. - Hospitalization Course Hospital Course: Mrs Arredondo is a 83 y/o female with fall yesterday while at home. She says that she was in her chair and fell asleep when she slid out of the chair onto the floor. She was on the floor for about 4 hours until her son came home at around 5 in the afternoon. She says that she fell on her right side and she has some pain of her right hip and rib area. She denies dizziness or loss of consciousness but says that she felt a little weak. The patient lives alone at home and uses a motorized lift chair. She has COPD requiring 2 liters continuous oxygen therapy. On presentation to the ED the patient was noted to have acute on chronic kidney injury and UA positive for leukocytes and nitrites. She is being admitted to the general medical floor for IV antibiotics, IVF hydration and physical therapy for weakness and deconditioning. CT head: negative for acute intracranial process CT pelvis: no fracture Significant labs: UA + leukocytes, nitrites and +4 bacteria, Bun/CR/Gfr: 26/1.09/16: The patient is awake, alert and oriented. Her labs have no acute findings with the exception of low serum glucose 59. The patient is on home dose of Tresiba 70 units and low dose sliding scale insulin. The patient had no clinical signs of hypoglycemia and glucose recovered to 96 then 136 after giving orange juice. The patient is stable to be discharged home with continued oral antibiotics. Procedures: Imaging and X-Rays 09/14/18 14:50 HEAD WO CONTRAST [CT] Stat PELVIS WO CONTRAST [CT] Stat Cardiology Procedures 09/14/18 14:36 Personnel Coordinator NOW Abnormal Labs: Abnormal Lab Results 09/14/18 09/14/18 09/14/18 Range/Units 14:45 14:45 15:15 RBC (3.80-5.40) M/uL Hgb 10.9 L (11.6-16.0) gm/dl Hct (35.0-47.0) % MCH 26.2 L (27-33) pg MCHC 29.5 L (32-36) g/dl RDW 15.3 H (11.5-14.5) % Monocytes % 10.2 H (0-9) % Chloride 97 L (98-107) mmol/L Carbon Dioxide 37.0 H (22-29) mmol/L BUN 26 H (8-23) mg/dL Creatinine 1.7 H (0.5-0.9) mg/dL POC Glucose (70-110) mg/dL Random Glucose 124 H (74-109) mg/dL AST 47 H (10.0-35.0) U/L Alkaline Phosphatase 115 H (35-104) U/L NT-Pro-B Natriuret Pep 466.30 H (<450) pg/mL Albumin 3.6 L (4.0-5.0) g/dL Albumin/Globulin Ratio 0.9 L (1.1-1.8) Urine Protein 30 mg/dl H (NEGATIVE) Urine Nitrite Positive H (NEGATIVE) Ur Leukocyte Esterase Large H (NEGATIVE) 09/14/18 09/15/18 09/15/18 Range/Units 23:40 06:27 08:16 RBC (3.80-5.40) M/uL Hgb (11.6-16.0) gm/dl Hct (35.0-47.0) % MCH (27-33) pg MCHC (32-36) g/dl RDW (11.5-14.5) % Monocytes % (0-9) % Chloride 97 L (98-107) mmol/L Carbon Dioxide 39.0 H (22-29) mmol/L BUN 28 H (8-23) mg/dL Creatinine 1.7 H (0.5-0.9) mg/dL POC Glucose 189 H 113 H (70-110) mg/dL Random Glucose 120 H (74-109) mg/dL AST (10.0-35.0) U/L Alkaline Phosphatase (35-104) U/L NT-Pro-B Natriuret Pep (<450) pg/mL Albumin (4.0-5.0) g/dL Albumin/Globulin Ratio (1.1-1.8) Urine Protein (NEGATIVE) Urine Nitrite (NEGATIVE) Ur Leukocyte Esterase (NEGATIVE) 09/15/18 09/15/18 09/16/18 Range/Units 11:36 17:16 06:40 RBC 3.67 L (3.80-5.40) M/uL Hgb 9.3 L (11.6-16.0) gm/dl Hct 32.9 L (35.0-47.0) % MCH 25.3 L (27-33) pg MCHC 28.3 L (32-36) g/dl RDW 15.4 H (11.5-14.5) % Monocytes % 9.8 H (0-9) % Chloride (98-107) mmol/L Carbon Dioxide (22-29) mmol/L BUN (8-23) mg/dL Creatinine (0.5-0.9) mg/dL POC Glucose 306 H 220 H (70-110) mg/dL Random Glucose (74-109) mg/dL AST (10.0-35.0) U/L Alkaline Phosphatase (35-104) U/L NT-Pro-B Natriuret Pep (<450) pg/mL Albumin (4.0-5.0) g/dL Albumin/Globulin Ratio (1.1-1.8) Urine Protein (NEGATIVE) Urine Nitrite (NEGATIVE) Ur Leukocyte Esterase (NEGATIVE) 09/16/18 Range/Units 06:40 RBC (3.80-5.40) M/uL Hgb (11.6-16.0) gm/dl Hct (35.0-47.0) % MCH (27-33) pg MCHC (32-36) g/dl RDW (11.5-14.5) % Monocytes % (0-9) % Chloride (98-107) mmol/L Carbon Dioxide 34.0 H (22-29) mmol/L BUN 26 H (8-23) mg/dL Creatinine 1.4 H (0.5-0.9) mg/dL POC Glucose (70-110) mg/dL Random Glucose 59 L (74-109) mg/dL AST (10.0-35.0) U/L Alkaline Phosphatase (35-104) U/L NT-Pro-B Natriuret Pep (<450) pg/mL Albumin (4.0-5.0) g/dL Albumin/Globulin Ratio (1.1-1.8) Urine Protein (NEGATIVE) Urine Nitrite (NEGATIVE) Ur Leukocyte Esterase (NEGATIVE) Condition at Discharge: (3) Guarded Discharge Medications - Discharge Medications Prescriptions: Cefdinir [Omnicef] 300 mg PO BID #12 cap Home Medications: Ambulatory Orders Albuterol Sulfate [Proair Hfa] 2 puff INH Q4HR PRN 04/01/14 [Last Taken 09/14/18 ] Aspirin Chewable 81 mg PO DAILY 04/01/14 [Last Taken 09/14/18] Budesonide/Formoterol Fumarate [Symbicort 80-4.5 Mcg Inhaler] 1 disk INH BID 07/06 [Last Taken 09/14/18] Captopril/Hydrochlorothiazide [Captopril-Hctz 50-25 mg Tablet] 1 each PO BID 07/06 [Last Taken 09/14/18] Duloxetine HCl [Cymbalta] 30 mg PO DAILY 04/01/14 [Last Taken 09/14/18] Fluoxetine HCl [Prozac] 20 mg PO DAILY 04/01/14 [Last Taken 09/14/18] Glipizide 20 mg PO DAILY 04/01/14 [Last Taken 09/14/18] Isosorbide Dinitrate 10 mg PO BID 04/01/14 [Last Taken 09/14/18] Loratadine [Claritin] 10 mg PO DAILY 04/01/14 [Last Taken 09/14/18] Lovastatin 40 mg PO DAILY 04/01/14 [Last Taken 09/14/18] Meloxicam [Mobic] 15 mg PO DAILY 04/01/14 [Last Taken 09/14/18] Omeprazole Magnesium [Prilosec Otc] 20 mg PO DAILY 04/01/14 [Last Taken 09/14/18 ] Tramadol HCl 50 mg PO BID 10/26/17 [Last Taken 09/13/18] Furosemide [Lasix] 40 mg PO DAILY 09/14/18 [Last Taken 09/14/18] Gabapentin [Neurontin] 600 mg PO BID 09/14/18 [Last Taken 09/14/18] Hydroxyzine HCl 25 mg PO DAILY 09/14/18 [Last Taken 09/14/18] Insulin Degludec [Tresiba Flextouch U-200] 70 units SQ DAILY 09/14/18 [Last Taken 09/14/18] Metformin HCl [Metformin HCl ER] 500 mg PO BID 09/14/18 [Last Taken 09/14/18] Potassium Chloride [Klor-Con M20] 20 meq PO DAILY 09/14/18 [Last Taken 09/14/18] Pramipexole Di-HCl [Pramipexole ER] 0.75 mg PO QHS 09/14/18 [Last Taken 09/13/18 ] Cefdinir [Omnicef] 300 mg PO BID #12 cap 09/16/18 [Last Taken Unknown] Discharge Plan - Discharge Instructions Additional Instructions: Follow up with Dr. Castro within 5-7 days of discharge. Resume all home medications as ordered. Take Omnicef 300mg twice daily for the next 6 days. If you have any new symptoms or other acute complaint please return to the ED. Quality Measures - Quality Measures Quality Measures: Advance Directives, Documentation of Current Medications in Medical Record, Elder Maltreatment Screen and Follow-Up Plan, Screening for High Blood Pressure and F/U Documented - Current Medications Quality Measure: Measure #130: Documentation of Current Medications Documentation of Current Medications: <Current Medications Documented/Reviewed> [G8427] - Blood Pressure Screening Quality Measure: Screening for High Blood Pressure and Follow-Up Documented Does Patient Have Any of the Following: Active Dx of HTN Blood Pressure Classification: Pre-Hypertensive BP Reading Systolic Measurement: 124 Diastolic Measurement: 35 Screening for High Blood Pressure: Patient Exclusion, Hx of HTN [G9744] - Advance Directives Quality Measure: Measure #47: Care Plan Advance Directives Established: No Advance Directives Information Provided To Patient: No Advance Directives on File: No Living Will: No Power of District Engineer: Yes Power of District Engineer Name: JOSE WILKS Advance Care Planning: <Care Plan/Decision Maker Not Decided; Discussed & Documented> [1124F] - Elder Abuse Suspicion Index Screening: Elder Abuse Suspicion Index Screening Rely on people for bathing, dressing, shopping, banking, etc: Yes Prevented from getting food, clothes, medication, etc: No Made to feel shamed or threatened by someone: No Forced to sign papers or use money against will: No Feel afraid, touched in ways not wanted or hurt physically: No Poor eye contact, withdrawn, malnourished, cuts or bruises: No Screening Result: Negative result EASI Reference Information: Sy STANTON, Inocencio C, Fhaad D, Ed Lizama.Development and validation of a tool to assist physicians identification of elder abuse: The Elder Abuse Suspicion Index (EASI ). Journal of Elder Abuse and Neglect, 2008; 20 (3): 276-300. - Elder Maltreatment Screen Quality Measures: Elder Maltreatment Screen and Follow-Up Plan Elder Maltreatment Screen: <Negative, No Follow-Up Plan Required> [G4984]
--- NOTE | 2018-09-17 10:08 | CT SCAN REPORT ---
EXAM: CT SCAN HEAD WO CONTRAST HISTORY: SYNCOPE. HIP PAIN. TECHNIQUE: Serial axial CT scan of the head was performed at 2.5 mm intervals from the base of the skull to the apex without the use of intravenous contrast. Sagittal and coronal reconstructions are provided. COMPARISON: No comparison CT's are available. FINDINGS: Moderate generalized parenchymal volume loss is noted. There is no mass or mass effect. Mild periventricular and subcortical white matter chronic small vessel ischemic changes are identified. Benign-appearing calcifications are identified within the right and left basal ganglia. There is no CT evidence of intra or extraaxial fluid collection to suggest bleeding. Bone windows demonstrate no CT evidence of a fracture or dislocation of the skull. Mild mucosal thickening is noted within the bilateral ethmoid air cells. IMPRESSION: MODERATE GENERALIZED PARENCHYMAL VOLUME LOSS AND CHRONIC SMALL VESSEL ISCHEMIC CHANGES ARE IDENTIFIED WITHOUT CT EVIDENCE OF AN ACUTE INTRACRANIAL PROCESS. JOB NUMBER: [id number] [facility]
--- NOTE | 2018-09-17 10:16 | CT SCAN REPORT ---
EXAM: CT SCAN PELVIS WO CONTRAST HISTORY: PATIENT HAS A HISTORY OF FALL. TECHNIQUE: Serial axial CT scan of the pelvis was performed at 2.5 mm intervals from the iliac crests to the pubic symphysis without the use of intravenous contrast. Sagittal and coronal reconstructions are provided. Bone windows are provided. COMPARISON: Comparison x-ray of the right hip dated 02/14/2012 is provided. Comparison x-ray of the pelvis and right hip dated 08/29/2011 is provided. FINDINGS: Bone window demonstrate multilevel advanced degenerative changes of the lower lumbar spine. 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 This arthroplasty creates streak artifacts limiting evaluation of the pelvic soft tissue structures. Within the limits of the examination, there is no CT evidence of an acute fracture or dislocation of the pelvis. No xavier-implant fractures of the right hip are identified. The left hip demonstrates no CT evidence of a fracture or dislocation. Sacroiliac joints are intact. Within the limits of the examination, the visualized bowel gas pattern is nonspecific, nonobstructive. The visualized urinary bladder is unremarkable. Uterus appears to be absent. IMPRESSION: 1. WITHIN THE LIMITS OF THE EXAMINATION, THERE IS NO CT EVIDENCE OF AN ACUTE FRACTURE OR DISLOCATION OF THE PELVIS. NO OBVIOUS FRACTURES OF THE RIGHT TOTAL HIP ARTHROPLASTY OR THE LEFT HIP ARE NOTED. 2. 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 JOB NUMBER: [id number] [facility]
== END 2018-09-16 12:10 | disposition home or self-care (01) | DRG 690 ==
LOC: ER 14:26 → MEDSURG 17:25
PROVIDERS: ADMIT Internal Medicine; ATTEND Internal Medicine
DX: N39.0 Urinary tract infection, site not specified (principal); N28.9 Disorder of kidney and ureter, unspecified; R53.81 Other malaise; E11.42 Type 2 diabetes mellitus with diabetic polyneuropathy; Z79.4 Long term (current) use of insulin; J44.9 Chronic obstructive pulmonary disease, unspecified; Z66 Do not resuscitate; Z91.81 History of falling
CPT/HCPCS: 36416; 70450; 72192; 80048; 80053; 81001; 82948; 83880; 84443; 84484; 85025; 94640; 94760; 94761; 96365; 99223; 99239; 99285; J0696; J1650

== ENCOUNTER 2019-03-22 15:13 | Emergency (ER) | payer MEDICARE, BC ==
--- NOTE | 2019-03-22 16:19 | Emergency Department Record ---
History of Present Illness - General Chief complaint: Weakness Stated complaint: BLOOD SUGAR HIGH Time Seen by Provider: 03/22/19 16:15 Source: Patient, RN notes reviewed Mode of Arrival: Stretcher - History of Present Illness Initial comments: weakness and no cough and no chest pain and no abdominal pain and lasix dose is being adjusted. lowered Onset/Timin -: Hour(s) Location: Generalized Improves with: None Worsens with: None Associated Symptoms: Nausea/vomiting, Other - [place] Coma Scale Eye Response: (4) Open spontaneously Motor Response: (6) Obeys commands Verbal Response: (5) Oriented [place] Total: 15 - Related Data Home Medications Medication Instructions Recorded Confirmed Last Taken Insulin Glargine,Hum.rec.anlog 65 unit SQ QAM 03/22/19 03/22/19 03/22/19 15:24 [Lantus Solostar] Previous Rx's Medication Instructions Recorded Ciprofloxacin HCl [Cipro] 500 mg PO Q12HR #20 tablet 03/22/19 Allergies Allergy/AdvReac Type Severity Reaction Status Date / Time No Known Drug Allergies Allergy Verified 09/14/18 14:28 Travel Screening - Travel/Exposure Within Last 30 Days Have you traveled within the last 30 days?: No - Travel/Exposure Within Last Year Have you traveled outside the [place] in the last year?: No - Additonal Travel Details Have you been exposed to anyone with a communicable illness?: No - Travel Symptoms Symptom Screening: None Review of Systems Reviewed: No additional complaints except as noted below Constitutional: Reports: As per HPI. Denies: Chills, Fever, Malaise, Night sweats, Weakness, Weight change Eyes: Reports: As per HPI. Denies: Eye discharge, Eye pain, Photophobia, Vision change ENT: Reports: As per HPI. Denies: Congestion, Dental pain, Ear pain, Epistaxis, Hearing loss, Throat pain Respiratory: Reports: As per HPI. Denies: Cough, Dyspnea, Hemoptysis, Stridor, Wheezes Cardiovascular: Reports: As per HPI. Denies: Arrhythmia, Chest pain, Dyspnea on exertion, Edema, Murmurs, Orthopnea, Palpitations, Paroxysmal nocturnal dyspnea, Rheumatic Fever, Syncope Endocrine: Reports: As per HPI. Denies: Fatigue, Heat or cold intolerance, Polydipsia, Polyuria Gastrointestinal: Reports: As per HPI. Denies: Abdominal pain, Constipation, Diarrhea, Hematemesis, Hematochezia, Melena, Nausea, Vomiting Genitourinary: Reports: As per HPI. Denies: Abnormal menses, Discharge, Dyspareunia, Dysuria, Frequency, Hematuria, Incontinence, Retention, Urgency Musculoskeletal: Reports: As per HPI. Denies: Arthralgia, Back pain, Gout, Joint swelling, Myalgia, Neck pain Skin: Reports: As per HPI. Denies: Bruising, Change in color, Change in hair/nails, Lesions, Pruritus, Rash Neurological: Reports: As per HPI. Denies: Abnormal gait, Confusion, Headache, Numbness, Paresthesias, Seizure, Tingling, Tremors, Vertigo, Weakness Psychiatric: Reports: As per HPI. Denies: Anxiety, Auditory hallucinations, Depression, Homicidal thoughts, Suicidal thoughts, Visual hallucinations Hematological/Lymphatic: Reports: As per HPI. Denies: Anemia, Blood Clots, Easy bleeding, Easy bruising, Swollen glands Past Medical History - SOCIAL HISTORY Smoking Status: Former smoker Alcohol Use: None Drug Use: None - RESPIRATORY Hx Respiratory Disorders: Yes Hx Bronchitis: Yes Hx COPD: Yes - CARDIOVASCULAR Hx Cardio Disorders: Yes Hx Hypertension: Yes - NEURO Hx Neuro Disorders: No - GI Hx GI Disorders: No - Hx Genitourinary Disorders: No Hx Bladder Problem: Yes (incontinence) - ENDOCRINE Hx Endocrine Disorders: Yes Hx Diabetes: Yes - MUSCULOSKELETAL Hx Musculoskeletal Disorders: Yes Hx Arthritis: Yes Hx Back Injury: Yes - PSYCH Hx Psych Problems: Yes Hx Anxiety: Yes Hx Depression: Yes - HEMATOLOGY/ONCOLOGY Hx Hematology/Oncology Disorders: No Family Medical History Any Significant Family History?: Yes Hx Cancer: Father Hx Heart Disease: Mother Physical Exam - General General Appearance: Alert, Oriented x3, Cooperative, No acute distress - Head Head exam: Normal inspection - Eye Eye exam: Normal appearance, PERRL Pupils: Normal accommodation - ENT ENT exam: Normal exam, Mucous membranes moist, Normal external ear exam, Normal orophraynx, TM's normal bilaterally Ear exam: Normal external inspection. negative: External canal tenderness Nasal Exam: Normal inspection. negative: Discharge, Sinus tenderness Mouth exam: Normal external inspection, Tongue normal Teeth exam: Normal inspection. negative: Dental caries Throat exam: Normal inspection. negative: Tonsillar erythema, Tonsillar exudate - Neck Neck exam: Normal inspection, Full ROM. negative: Tenderness - Respiratory Respiratory exam: Normal lung sounds bilaterally. negative: Respiratory distress - Cardiovascular Cardiovascular Exam: Regular rate, Normal rhythm, Normal heart sounds - GI/Abdominal GI/Abdominal exam: Soft, Normal bowel sounds. negative: Tenderness - Rectal Rectal exam: Deferred - exam: Deferred - Extremities Extremities exam: Normal inspection, Full ROM, Normal capillary refill. negative: Tenderness - Back Back exam: Reports: Normal inspection, Full ROM. Denies: Muscle spasm, Rash noted, Tenderness - Neurological Neurological exam: Alert, Normal gait, Oriented X3, Reflexes normal - Psychiatric Psychiatric exam: Normal affect, Normal mood - Skin Skin exam: Dry, Intact, Normal color, Warm Course Vital Signs 03/22/19 15:17 Temperature 97.8 F Pulse Rate 73 Respiratory 18 Rate Blood Pressure 139/50 Pulse Ox 98 Medical Decision Making - Lab Data Result diagrams: 03/22/19 15:00 03/22/19 15:00 Disposition Clinical Impression: Dehydration UTI (urinary tract infection) Qualifiers: Urinary tract infection type: acute cystitis Hematuria presence: without hematuria Qualified Code(s): N30.00 - Acute cystitis without hematuria Disposition: Home, Self-Care Condition: (1) Good Instructions: Urinary Tract Infection in Women (ED) Additional Instructions: follow up with family Dr in one week Prescriptions: Ciprofloxacin HCl [Cipro] 500 mg PO Q12HR #20 tablet Forms: Patient Portal Access Quality - Quality Measures Quality Measures: N/A - Blood Pressure Screening Does Patient Have Any of the Following: No, Active Dx of HTN Blood Pressure Classification: Pre-Hypertensive BP Reading Systolic Measurement: 139 Diastolic Measurement: 50 Screening for High Blood Pressure: Patient Exclusion, Hx of HTN [G9744]
[2019-03-22 16:26] LABS: ABSOLUTE NEUTROPHIL COUNT 3.65; BASO % 0.4 % (0-6); EOS % 3.6 % (0-6); GRAN % 48.7 % (47-80); HEMATOCRIT 37.6 % (35.0-47.0); HEMOGLOBIN 11.1 gm/dl (11.6-16.0); MEAN CELL VOLUME 84.3 fl (81-97); MEAN CORPUSCULAR HEMOGLOBIN 24.8 pg (27-33); MEAN CORPUSCULAR HGB CONC 29.5 g/dl (32-36); MEAN PLATELET VOLUME 9.5 fl (7.4-10.4); MONO % 7.3 % (0-9); PLATELET COUNT 264 K/uL (130-400); RED BLOOD COUNT 4.46 M/uL (3.80-5.40); RED CELL DISTRIBUTION WIDTH 16.5 % (11.5-14.5); WHITE BLOOD COUNT W/O DIFF 7.5 K/uL (4.2-12.2)
[2019-03-22 16:38] LABS: BLOOD UREA NITROGEN 25 mg/dL (8-23); CREATININE 1.5 mg/dL (0.5-0.9); EST GLOMERULAR FILTRATION RATE 35 mL/min
[2019-03-22 16:39] LABS: LIPASE 10 U/L (13-60); TOTAL PROTEIN 6.7 g/dL (6.6-8.7)
[2019-03-22 16:41] LABS: GLUCOSE,RANDOM 264 mg/dL (74-109)
[2019-03-22 16:43] LABS: ALT/SGPT 8 U/L (<33)
[2019-03-22 16:44] LABS: ALBUMIN 3.6 g/dL (4.0-5.0); ALKALINE PHOSPHATASE 121 U/L (35-104); AST/SGOT 13 U/L (10.0-35.0); BILIRUBIN,DIRECT < 0.2 mg/dL (0-0.3)
[2019-03-22 17:37] LABS: URINE APPEARANCE CLEAR; URINE BILIRUBIN NEGATIVE (NEGATIVE); URINE BLOOD NEGATIVE (NEGATIVE); URINE COLOR YELLOW; URINE GLUCOSE (UA) NEGATIVE (NEGATIVE); URINE KETONE NEGATIVE (NEGATIVE); URINE LEUKOCYTE ESTERASE TRACE (NEGATIVE); URINE NITRITE POSITIVE (NEGATIVE); URINE PROTEIN NEGATIVE (NEGATIVE); URINE UROBILINOGEN 0.2 E.U./dL (0.20 - 1.00)
[2019-03-22 17:50] LABS: URINE BACTERIA 2+; URINE EPITHELIAL CELLS 0 - 2 (FEW); URINE RBC 0 - 2 (NONE SEEN); URINE WBC 0 - 2 (0-2/hpf)
[2019-03-22] MEDS ORDERED: CIPROFLOXACIN HCL 500 MG TABLET PO ONE (18:07)
== END 2019-03-22 18:26 | disposition home or self-care (01) ==
LOC: ER 15:13
DX: E86.0 Dehydration (principal); R42 Dizziness and giddiness; N30.00 Acute cystitis without hematuria; R11.2 Nausea with vomiting, unspecified; I10 Essential (primary) hypertension; J44.9 Chronic obstructive pulmonary disease, unspecified; E11.9 Type 2 diabetes mellitus without complications; Z87.891 Personal history of nicotine dependence
CPT/HCPCS: 80048; 80076; 81001; 83690; 85025; 99283; 99284

== ENCOUNTER 2019-06-25 08:21 | Emergency (ER) | payer MEDICARE, BC ==
--- NOTE | 2019-06-25 09:23 | Emergency Department Record ---
History of Present Illness - General Chief complaint: Female Urogenital Problem Stated complaint: THINKS SHE UTI Time Seen by Provider: 06/25/19 08:47 Source: Patient, Family, Old records reviewed Mode of Arrival: Ambulatory Limitations: No limitations - History of Present Illness Initial comments: pt states she has been increasingly confused the last few days. she denies fever, chills or new pain. she is accompanied by her daughter who states also t hat her mother has been more confused. pt lives alone. she thinks she might have a uti MD Complaint: Other Onset/Timin -: Days(s) Improves with: None Worsens with: None Patient : No Associated Symptoms: Denies other symptoms - Related Data Home Medications Medication Instructions Recorded Confirmed Last Taken Aspirin [Aspirin EC] 81 mg PO DAILY 06/25/19 06/25/19 Unknown Calcium Carb/Mag Oxide/Cu/Zinc [Ra 1 each PO DAILY 06/25/19 06/25/19 Unknown [id number] Tablet] Losartan Potassium 50 mg PO DAILY 06/25/19 06/25/19 Unknown Multivitamin [Multi-Vitamin Daily] 1 each PO DAILY 06/25/19 06/25/19 Unknown Pramipexole Di-HCl [Pramipexole ER] 0.75 mg PO QHS 06/25/19 06/25/19 Unknown Previous Rx's Medication Instructions Recorded Cephalexin [Keflex] 500 mg PO BID #14 cap 06/25/19 Allergies Allergy/AdvReac Type Severity Reaction Status Date / Time No Known Drug Allergies Allergy Verified 06/25/19 08:29 Travel Screening - Travel/Exposure Within Last 30 Days Have you traveled within the last 30 days?: No Review of Systems Reviewed: No additional complaints except as noted below Constitutional: Reports: As per HPI. Denies: Chills, Fever, Malaise, Night sweats, Weakness, Weight change Eyes: Reports: As per HPI. Denies: Eye discharge, Eye pain, Photophobia, Vision change ENT: Reports: As per HPI. Denies: Congestion, Dental pain, Ear pain, Epistaxis, Hearing loss, Throat pain Respiratory: Reports: As per HPI. Denies: Cough, Dyspnea, Hemoptysis, Stridor, Wheezes Cardiovascular: Reports: As per HPI. Denies: Arrhythmia, Chest pain, Dyspnea on exertion, Edema, Murmurs, Orthopnea, Palpitations, Paroxysmal nocturnal dyspnea, Rheumatic Fever, Syncope Endocrine: Reports: As per HPI. Denies: Fatigue, Heat or cold intolerance, Polydipsia, Polyuria Gastrointestinal: Reports: As per HPI. Denies: Abdominal pain, Constipation, Diarrhea, Hematemesis, Hematochezia, Melena, Nausea, Vomiting Genitourinary: Reports: As per HPI. Denies: Abnormal menses, Discharge, Dyspareunia, Dysuria, Frequency, Hematuria, Incontinence, Retention, Urgency Musculoskeletal: Reports: As per HPI. Denies: Arthralgia, Back pain, Gout, Joint swelling, Myalgia, Neck pain Skin: Reports: As per HPI. Denies: Bruising, Change in color, Change in hair/nails, Lesions, Pruritus, Rash Neurological: Reports: As per HPI, Confusion. Denies: Abnormal gait, Headache, Numbness, Paresthesias, Seizure, Tingling, Tremors, Vertigo, Weakness Psychiatric: Reports: As per HPI. Denies: Anxiety, Auditory hallucinations, Depression, Homicidal thoughts, Suicidal thoughts, Visual hallucinations Hematological/Lymphatic: Reports: As per HPI. Denies: Anemia, Blood Clots, Easy bleeding, Easy bruising, Swollen glands Past Medical History - SOCIAL HISTORY Smoking Status: Former smoker Alcohol Use: None Drug Use: None - RESPIRATORY Hx Respiratory Disorders: Yes Hx Bronchitis: Yes Hx COPD: Yes Comment:: 02 2L all times - CARDIOVASCULAR Hx Cardio Disorders: Yes Hx Hypertension: Yes - NEURO Hx Neuro Disorders: No - GI Hx GI Disorders: No - Hx Genitourinary Disorders: Yes Hx Bladder Problem: Yes (incontinence) Hx UTI: Yes - ENDOCRINE Hx Endocrine Disorders: Yes Hx Diabetes: Yes - MUSCULOSKELETAL Hx Musculoskeletal Disorders: Yes Hx Arthritis: Yes Hx Back Injury: Yes - PSYCH Hx Psych Problems: Yes Hx Anxiety: Yes Hx Depression: Yes - HEMATOLOGY/ONCOLOGY Hx Hematology/Oncology Disorders: No Family Medical History Any Significant Family History?: Yes Hx Cancer: Father Hx Heart Disease: Mother Physical Exam - General General Appearance: Alert, Oriented x3, Cooperative, No acute distress - Head Head exam: Normal inspection - Eye Eye exam: Normal appearance, PERRL, EOMI Pupils: Normal accommodation - ENT ENT exam: Normal exam, Mucous membranes moist, Normal external ear exam, Normal orophraynx Ear exam: Normal external inspection. negative: External canal tenderness Nasal Exam: Normal inspection. negative: Discharge, Sinus tenderness Mouth exam: Normal external inspection, Tongue normal Teeth exam: Normal inspection. negative: Dental caries Throat exam: Normal inspection. negative: Tonsillar erythema, Tonsillar exudate - Neck Neck exam: Normal inspection, Full ROM. negative: Tenderness - Respiratory Respiratory exam: Normal lung sounds bilaterally. negative: Respiratory distress - Cardiovascular Cardiovascular Exam: Regular rate, Normal rhythm, Normal heart sounds - GI/Abdominal GI/Abdominal exam: Soft, Normal bowel sounds. negative: Tenderness - Rectal Rectal exam: Deferred - exam: Deferred - Extremities Extremities exam: Full ROM, Normal capillary refill, Pedal edema. negative: Tenderness - Back Back exam: Reports: Normal inspection, Full ROM. Denies: Muscle spasm, Rash noted, Tenderness - Neurological Neurological exam: Alert, CN II-XII intact, Normal gait, Oriented X3 - Psychiatric Psychiatric exam: Normal affect, Normal mood - Skin Skin exam: Dry, Intact, Normal color, Warm Course Vital Signs 06/25/19 08:26 Temperature 98.3 F Pulse Rate 93 H Respiratory 20 Rate Blood Pressure 179/60 Pulse Ox 91 L Medical Decision Making - Lab Data Result diagrams: 06/25/19 09:10 06/25/19 09:10 Disposition Disposition: Discharge Clinical Impression: Confusion UTI (urinary tract infection) Qualifiers: Urinary tract infection type: acute cystitis Hematuria presence: without hematuria Qualified Code(s): N30.00 - Acute cystitis without hematuria Disposition: Home, Self-Care Condition: (1) Good Instructions: Urinary Tract Infection in Women (ED) Additional Instructions: follow up with family doctor within a week. return sooner if worse. push fluids Prescriptions: Cephalexin [Keflex] 500 mg PO BID #14 cap Forms: Patient Portal Access Quality - Quality Measures Quality Measures: N/A - Blood Pressure Screening Does Patient Have Any of the Following: Active Dx of HTN Blood Pressure Classification: Hypertensive Reading Systolic Measurement: 179 Diastolic Measurement: 60 Screening for High Blood Pressure: Patient Exclusion, Hx of HTN [G9744]
[2019-06-25 09:31] LABS: ABSOLUTE NEUTROPHIL COUNT 3.63; BASO % 0.6 % (0-6); EOS % 5.8 % (0-6); GRAN % 53.5 % (47-80); HEMATOCRIT 31.6 % (35.0-47.0); HEMOGLOBIN 9.3 gm/dl (11.6-16.0); LYMPH % 31.4 % (16-45); MEAN CELL VOLUME 83.2 fl (81-97); MEAN CORPUSCULAR HGB CONC 29.4 g/dl (32-36); MEAN PLATELET VOLUME 9.3 fl (7.4-10.4); MONO % 8.7 % (0-9); PLATELET COUNT 257 K/uL (130-400); RED CELL DISTRIBUTION WIDTH 16.4 % (11.5-14.5); WHITE BLOOD COUNT W/O DIFF 6.8 K/uL (4.2-12.2)
[2019-06-25 09:34] LABS: MEAN CORPUSCULAR HEMOGLOBIN 24.4 pg (27-33)
[2019-06-25 09:34] LABS: URINE APPEARANCE CLOUDY; URINE BILIRUBIN NEGATIVE (NEGATIVE); URINE BLOOD TRACE-I (NEGATIVE); URINE COLOR YELLOW; URINE GLUCOSE (UA) NEGATIVE (NEGATIVE); URINE KETONE NEGATIVE (NEGATIVE); URINE LEUKOCYTE ESTERASE SMALL (NEGATIVE); URINE NITRITE POSITIVE (NEGATIVE); URINE PROTEIN NEGATIVE (NEGATIVE); URINE UROBILINOGEN 0.2 E.U./dL (0.20 - 1.00)
[2019-06-25 09:42] LABS: URINE RBC 0 - 2 (NONE SEEN)
[2019-06-25 09:43] LABS: URINE BACTERIA 4+; URINE TRANSITIONAL EPI CELLS 0 - 2 /hpf
[2019-06-25 09:45] LABS: BILIRUBIN,TOTAL 0.3 mg/dL (0.2-1.0); CREATININE 1.3 mg/dL (0.5-0.9)
[2019-06-25 09:46] LABS: TOTAL PROTEIN 6.3 g/dL (6.6-8.7)
[2019-06-25 09:50] LABS: ALBUMIN 3.2 g/dL (4.0-5.0)
[2019-06-25] MEDS ORDERED: CEPHALEXIN 500 MG CAPSULE PO STA (10:25)
--- NOTE | 2019-06-27 14:38 | CT SCAN REPORT ---
DATE: 06/25/2019. EXAM: CT SCAN OF THE BRAIN WITHOUT CONTRAST. HISTORY: CONFUSION. TECHNIQUE: Standard CT imaging of the brain was performed in the axial plane without contrast. COMPARISON: 09/14/2018. FINDINGS: There is stable generalized atrophy. The ventricles and subarachnoid spaces are otherwise normal. Patchy areas of decreased attenuation are again noted within the periventricular and subcortical white matter of both cerebral hemispheres and are unchanged. There is no mass, mass effect, intracranial hemorrhage, visible acute infarct, or abnormal extra-axial fluid. The skull is intact. The orbits and sinuses are normal. There is minor chronic fluid within the left mastoid air cells which is unchanged. The right mastoid air cells are clear. IMPRESSION: 1. STABLE HEAD CT WITH NO ACUTE INTRACRANIAL ABNORMALITY. 2. ATROPHY AND CHRONIC SMALL-VESSEL ISCHEMIC CHANGES. Job Number: [id number] [facility]
== END 2019-06-25 10:52 | disposition home or self-care (01) ==
LOC: ER 08:21
DX: N30.00 Acute cystitis without hematuria (principal); I10 Essential (primary) hypertension; E11.9 Type 2 diabetes mellitus without complications; J44.9 Chronic obstructive pulmonary disease, unspecified
CPT/HCPCS: 70450; 80053; 81001; 85025; 99284

== ENCOUNTER 2019-06-27 11:56 | Observation (INO) | payer MEDICARE, BC ==
--- NOTE | 2019-06-27 12:30 | Emergency Department Record ---
History of Present Illness - General Chief complaint: Hypogylcemia Stated complaint: AMBULANCE Time Seen by Provider: 06/27/19 12:19 Source: Patient, Family (Daughter) Mode of Arrival: EMS Limitations: No limitations - History of Present Illness Initial comments: 84 yo female presents with resolved confusion after found with a blood sugar of 64 by her daughter. The patient is a diabetic. She states her appetite has been decreased for a couple days. She has continued her normal medications and doses. Her daughter gave her a brownie and juice. Her glucose returned to a normal level and her confusion resolved. She was diagnosed with a UTI in the ED yesterday. No headache, nausea, vomiting, diarrhea, or abdominal pain. She is at her baseline in the ED. Dr Molina is her PCP. She is on metformin, glipizide and insulin lantus 70/30 at 70 units once daily in the morning. MD Complaint: Generalized weakness (Confusion with low blood sugar at home of 64) Onset/Timin -: Days(s) Location: Generalized Severity: Moderate Consistency: Now resolved Improves with: None Worsens with: None Associated Symptoms: Denies other symptoms - Related Data Home Medications Medication Instructions Recorded Confirmed Last Taken Insulin Glargine,Hum.rec.anlog 70 unit SQ DAILY 06/27/19 06/27/19 Unknown [Lantus Solostar] Previous Rx's Medication Instructions Recorded Cephalexin [Keflex] 500 mg PO BID #14 cap 06/25/19 Allergies Allergy/AdvReac Type Severity Reaction Status Date / Time No Known Drug Allergies Allergy Verified 06/25/19 08:29 Travel Screening - Travel/Exposure Within Last 30 Days Have you traveled within the last 30 days?: No Review of Systems Constitutional: Denies: Chills, Fever, Malaise, Weakness Eyes: Denies: Eye discharge, Eye pain, Vision change ENT: Denies: Congestion, Throat pain Respiratory: Denies: Cough, Dyspnea, Hemoptysis, Wheezes Cardiovascular: Denies: Chest pain, Palpitations, Syncope Endocrine: Denies: Fatigue, Polydipsia, Polyuria Gastrointestinal: Denies: Abdominal pain, Diarrhea, Nausea, Vomiting Genitourinary: Reports: As per HPI, Dysuria. Denies: Frequency, Urgency Musculoskeletal: Denies: Arthralgia, Back pain, Neck pain Neurological: Reports: As per HPI, Confusion Psychiatric: Denies: Anxiety Hematological/Lymphatic: Denies: Easy bleeding, Easy bruising Past Medical History - SOCIAL HISTORY Smoking Status: Former smoker - RESPIRATORY Hx Respiratory Disorders: Yes Hx Bronchitis: Yes Hx COPD: Yes Comment:: 02 2L all times - CARDIOVASCULAR Hx Cardio Disorders: Yes Hx Hypertension: Yes - NEURO Hx Neuro Disorders: No - GI Hx GI Disorders: No - Hx Genitourinary Disorders: Yes Hx Bladder Problem: Yes (incontinence) Hx UTI: Yes - ENDOCRINE Hx Endocrine Disorders: Yes Hx Diabetes: Yes - MUSCULOSKELETAL Hx Musculoskeletal Disorders: Yes Hx Arthritis: Yes Hx Back Injury: Yes - PSYCH Hx Psych Problems: Yes Hx Anxiety: Yes Hx Depression: Yes - HEMATOLOGY/ONCOLOGY Hx Hematology/Oncology Disorders: No Family Medical History Any Significant Family History?: Yes Hx Cancer: Father Hx Heart Disease: Mother Physical Exam - General General Appearance: Alert, Oriented x3, Cooperative, No acute distress, Other (Well appearing, conversational) Limitations: No limitations - Head Head exam: Atraumatic, Normal inspection - Eye Eye exam: Normal appearance, PERRL. negative: Scleral icterus - ENT ENT exam: Normal exam, Mucous membranes moist Ear exam: Normal external inspection Nasal Exam: Normal inspection Mouth exam: Normal external inspection - Neck Neck exam: Normal inspection - Respiratory Respiratory exam: Normal lung sounds bilaterally. negative: Respiratory distress - Cardiovascular Cardiovascular Exam: Regular rate, Normal rhythm, Normal heart sounds Peripheral Pulses: 2+: Radial (R), Radial (L) - GI/Abdominal GI/Abdominal exam: Soft. negative: Distended, Guarding, Tenderness - Rectal Rectal exam: Deferred - exam: Deferred - Extremities Extremities exam: Normal inspection - Back Back exam: Denies: CVA tenderness (R), CVA tenderness (L) - Neurological Neurological exam: Alert, CN II-XII intact, Oriented X3. negative: Altered, Motor sensory deficit - Psychiatric Psychiatric exam: Normal affect, Normal mood. negative: Agitated, Anxious, Depressed, Manic - Skin Skin exam: Dry, Intact, Normal color, Warm Course Vital Signs 06/27/19 12:05 Pulse Rate 81 Respiratory 20 Rate Blood Pressure 161/69 Pulse Ox 98 - Reevaluation(s) Reevaluation #1: 06/27/19 13:16 The labs were reviewed No acute changes Stable, mild chronic anemia and renal insufficiency 06/27/19 14:10 UA is negative 06/27/19 14:27 The patient will be admitted for observation given she lives alone to monitor her blood sugars and meals. Torie Jefferson [employer] accepts the patient for overnight observation for hypoglycemia Medical Decision Making - Lab Data Result diagrams: 06/27/19 12:15 06/27/19 12:15 Disposition Disposition: Admit Clinical Impression: Hypoglycemia Disposition: Home, Self-Care Decision to Admit: Admit from ER Decision to Admit Date: 06/27/19 Decision to Admit Time: 14:27 Time Discussed w/Accepting Physician: 14:27 Condition: (1) Good Instructions: Hypoglycemia in a Person with Diabetes (ED) Additional Instructions: Check your blood sugar three times daily Do not miss any meals Decrease your Insulin 70/30 to 40 units in the morning for two days Return immediately if your blood sugar drops You are not to be alone today or tomorrow Forms: Patient Portal Access Time of Disposition: 14:18 Quality - Quality Measures Quality Measures: N/A - Blood Pressure Screening Does Patient Have Any of the Following: Active Dx of HTN Blood Pressure Classification: Hypertensive Reading Systolic Measurement: 161 Diastolic Measurement: 69 Screening for High Blood Pressure: Patient Exclusion, Hx of HTN [G9744]
[2019-06-27 12:33] LABS: ABSOLUTE NEUTROPHIL COUNT 3.25; BASO % 0.4 % (0-6); EOS % 5.8 % (0-6); GRAN % 56.8 % (47-80); HEMATOCRIT 33.1 % (35.0-47.0); HEMOGLOBIN 9.4 gm/dl (11.6-16.0); LYMPH % 29.6 % (16-45); MEAN CORPUSCULAR HGB CONC 28.4 g/dl (32-36); MEAN PLATELET VOLUME 9.5 fl (7.4-10.4); MONO % 7.4 % (0-9); PLATELET COUNT 278 K/uL (130-400); RED BLOOD COUNT 3.94 M/uL (3.80-5.40); RED CELL DISTRIBUTION WIDTH 17.2 % (11.5-14.5); WHITE BLOOD COUNT W/O DIFF 5.7 K/uL (4.2-12.2)
[2019-06-27 12:34] LABS: MEAN CORPUSCULAR HEMOGLOBIN 23.8 pg (27-33)
[2019-06-27 12:45] LABS: CREATININE 1.3 mg/dL (0.5-0.9)
[2019-06-27 14:09] LABS: URINE APPEARANCE CLEAR; URINE BILIRUBIN NEGATIVE (NEGATIVE); URINE BLOOD NEGATIVE (NEGATIVE); URINE COLOR YELLOW; URINE GLUCOSE (UA) NEGATIVE (NEGATIVE); URINE KETONE NEGATIVE (NEGATIVE); URINE LEUKOCYTE ESTERASE NEGATIVE (NEGATIVE); URINE NITRITE NEGATIVE (NEGATIVE); URINE PROTEIN NEGATIVE (NEGATIVE); URINE UROBILINOGEN 0.2 E.U./dL (0.20 - 1.00)
[2019-06-27] MEDS ORDERED: FLU VAC QS 2019-20 (INPT, 6MO+) 60MCG/0.5ML IM ONE (16:29)
[2019-06-27] MEDS: GLIPIZIDE 5 MG TABLET PO SCH ×2 (17:38→21:08)
[2019-06-27] MEDS: ISOSORBIDE DINITRATE 10 MG MC SCH ×2 (17:38→21:08)
[2019-06-27] MEDS ORDERED: ACETAMINOPHEN 325 MG TAB PO PRN (18:35)
[2019-06-27] MEDS: ACETAMINOPHEN 500 MG TABLET PO PRN (18:45)
[2019-06-27] MEDS: PRAMIPEXOLE DI-HCL 0.25 MG TABLET PO SCH (21:10)
[2019-06-27] MEDS: SIMVASTATIN 20 MG TABLET PO SCH (21:11)
[2019-06-27] MEDS: CEPHALEXIN 500 MG CAPSULE PO SCH (21:12)
[2019-06-28] MEDS: DIPHENHYDRAMINE HCL 25 MG CAPSULE PO PRN ×2 (00:44→22:14)
[2019-06-28] MEDS: ACETAMINOPHEN 500 MG TABLET PO PRN (00:44)
[2019-06-28] MEDS: PANTOPRAZOLE SODIUM 40 MG TABLET PO SCH (07:09)
[2019-06-28] MEDS: MULTIVITAMINS/MINERALS TABLET PO SCH (09:06)
[2019-06-28] MEDS: DULOXETINE HCL 30 MG CAPSULE.DR PO SCH (09:07)
[2019-06-28] MEDS: GLIPIZIDE 5 MG TABLET PO SCH ×2 (09:08→22:14)
[2019-06-28] MEDS: METFORMIN ER HCL 500 MG TAB.ER.24H PO SCH (09:08)
[2019-06-28] MEDS: ASPIRIN 81 MG TABEC PO SCH (09:08)
[2019-06-28] MEDS: CEPHALEXIN 500 MG CAPSULE PO SCH ×2 (09:09→22:15)
[2019-06-28] MEDS: FLUOXETINE HCL 10 MG CAPSULE PO SCH (09:09)
[2019-06-28] MEDS: ISOSORBIDE DINITRATE 10 MG MC SCH ×2 (09:12→22:21)
[2019-06-28] MEDS: POTASSIUM CHLORIDE 20 MEQ TABLET PO SCH (09:15)
[2019-06-28] MEDS ORDERED: FUROSEMIDE 40 MG TABLET PO SCH (10:00)
[2019-06-28] MEDS ORDERED: LORATADINE 10 MG TABLET PO SCH (10:00)
--- NOTE | 2019-06-28 10:53 | History & Physical ---
History of Present Illness - Date of Service Date of Service for History & Physical: 06/29/19 - History of Present Illness Admitting Diagnosis: hypoglycemia History of Present Illness: 97.9 F, HR 81, Bp 161/96, 20, 98% RA WBC 5.7, Hgb 9.4, Hct 33.1, plt 278 Na 144, K 3.9, Cl 104, Co2 28, [place] 12, BUN 9, Cr 1.3, GFR 41, glucose 125 BNP 288.9 UA neg Pt admitted for hypoglyemia at home, found confused with glucose 64 at home. This Am pt was 74, unknown why blood sugars are dropping, holding 70/30 AM dosing, decreased glipizide from 10mg BID to 5mg BID. Pt can have s/s mod cover for breakthrough but concerns to is eating inconsistently at home and continues to take her DM medication. Pt does report poor sleep at night but napping throughout the day and "eating what i am not suppose to" PCP [facility] ([facility]) Travel Screening - Travel/Exposure Within Last 30 Days Have you traveled within the last 30 days?: No - Travel/Exposure Within Last Year Have you traveled outside the [place] in the last year?: No - Additonal Travel Details Have you been exposed to anyone with a communicable illness?: No - Travel Symptoms Symptom Screening: None Review of Systems Constitutional: Denies: Chills, Fever, Malaise, Weakness Eyes: Denies: Eye discharge, Eye pain, Vision change ENT: Denies: Congestion, Throat pain Respiratory: Denies: Cough, Dyspnea, Hemoptysis, Wheezes Cardiovascular: Denies: Chest pain, Palpitations, Syncope Endocrine: Denies: Fatigue, Polydipsia, Polyuria Gastrointestinal: Denies: Abdominal pain, Diarrhea, Nausea, Vomiting Genitourinary: Reports: As per HPI, Dysuria. Denies: Frequency, Urgency Musculoskeletal: Denies: Arthralgia, Back pain, Neck pain Neurological: Reports: As per HPI, Confusion Psychiatric: Denies: Anxiety Hematological/Lymphatic: Denies: Easy bleeding, Easy bruising Past Medical History - SOCIAL HISTORY Smoking Status: Former smoker Alcohol Use: Rare Drug Use: None - RESPIRATORY Hx Respiratory Disorders: Yes Hx Bronchitis: Yes Hx COPD: Yes Hx Sleep Apnea: Yes Hx of CPAP: Yes (does not wear) Comment:: 02 2L all times - CARDIOVASCULAR Hx Cardio Disorders: Yes Hx Hypertension: Yes - NEURO Hx Neuro Disorders: No - GI Hx GI Disorders: No - Hx Genitourinary Disorders: Yes Hx Bladder Problem: Yes (incontinence) Hx UTI: Yes - ENDOCRINE Hx Endocrine Disorders: Yes Hx Diabetes: Yes (oral and insulin) Hx Thyroid Disease: No - MUSCULOSKELETAL Hx Musculoskeletal Disorders: Yes Hx Arthritis: Yes Hx Back Injury: Yes - PSYCH Hx Psych Problems: Yes Hx Anxiety: Yes Hx Depression: Yes - HEMATOLOGY/ONCOLOGY Hx Hematology/Oncology Disorders: No Family Medical History Any Significant Family History?: Yes Hx Cancer: Father Hx Heart Disease: Mother H&P Meds/Allergies - Allergies Allergies: Allergies Allergy/AdvReac Type Severity Reaction Status Date / Time No Known Drug Allergies Allergy Verified 06/25/19 08:29 - Home Medications Home Medications Medication Instructions Recorded Confirmed Last Taken Insulin Glargine,Hum.rec.anlog 70 unit SQ DAILY 06/27/19 06/27/19 Unknown [Lantus Solostar] Albuterol Sulfate [Proair Hfa] 2 puff IH Q4H PRN 06/29/19 06/29/19 Unknown Furosemide [Lasix] 10 mg PO DAILY 06/29/19 06/29/19 Unknown Previous Rx's Medication Instructions Recorded Cephalexin [Keflex] 500 mg PO BID #14 cap 06/25/19 - Active Medications Active Medications: Current Medications Acetaminophen (Tylenol 500mg Tab) 1,000 mg PO Q6H PRN PRN Reason: PAIN - MILD TO MODERATE (1-7) Last Admin: 06/28/19 00:44 Dose: 1,000 mg Documented by: Aspirin (Ecotrin (Ec)) 81 mg PO DAILY [facility] Last Admin: 06/28/19 09:08 Dose: 81 mg Documented by: Cephalexin HCl (Keflex) 500 mg PO BID LENA Stop: 07/07/19 22:01 Last Admin: 06/28/19 09:09 Dose: 500 mg Documented by: Diphenhydramine HCl (Benadryl Capsule) 25 mg PO QHS PRN PRN Reason: SLEEP Last Admin: 06/28/19 00:44 Dose: 25 mg Documented by: Duloxetine HCl (Cymbalta) 60 mg PO DAILY [facility] Last Admin: 06/28/19 09:07 Dose: 60 mg Documented by: Fluoxetine HCl (Prozac) 10 mg PO DAILY [facility] Last Admin: 06/28/19 09:09 Dose: 10 mg Documented by: Furosemide (Lasix) 20 mg PO QAM [facility] Last Admin: 06/28/19 09:10 Dose: 20 mg Documented by: Glipizide (Glucotrol) 10 mg PO BID [facility] Last Admin: 06/28/19 09:08 Dose: 5 mg Documented by: Loratadine (Claritin) 10 mg PO DAILY [facility] Last Admin: 06/28/19 09:06 Dose: 10 mg Documented by: Metformin HCl (Glucophage Xr) 500 mg PO QAM [facility] Last Admin: 06/28/19 09:08 Dose: 500 mg Documented by: Multivitamins/Minerals (Centrum) 1 tab PO DAILY [facility] Last Admin: 06/28/19 09:06 Dose: 1 tab Documented by: Pantoprazole Sodium (Protonix) 40 mg PO DAILYAC [facility] Last Admin: 06/28/19 07:09 Dose: 40 mg Documented by: Patient Own Med: Isosorbide Dinitrate 10mg Tablet 1 each MC BID [facility] Last Admin: 06/28/19 09:12 Dose: 1 each Documented by: Potassium Chloride (Klor-Con) 20 meq PO DAILY [facility] Last Admin: 06/28/19 09:15 Dose: Not Given Documented by: Pramipexole Dihydrochloride (Pramipexole Dihydrochloride) 0.75 mg PO QHS [facility] Last Admin: 06/27/19 21:10 Dose: 0.75 mg Documented by: Simvastatin (Zocor) 20 mg PO QHS [facility] Last Admin: 06/27/19 21:11 Dose: 20 mg Documented by: Physical Exam - Vital Signs Vital Signs: Vital Signs - Last 24 Hrs Temp Pulse Pulse Resp BP BP Pulse Ox 06/28/19 10:23 16 98 06/28/19 07:00 98.0 F 78 20 114/69 98 06/27/19 19:53 98.7 F 84 20 158/59 96 06/27/19 18:26 16 98 06/27/19 16:42 82 20 06/27/19 16:29 81 20 128/54 98 06/27/19 15:33 97.9 F 82 193/53 94 L 06/27/19 12:05 81 20 161/69 98 - General General Appearance: Alert, Oriented x3, Cooperative, No acute distress, Other (Well appearing, conversational) Limitations: No limitations - Head Head exam: Atraumatic, Normal inspection - Eye Eye exam: Normal appearance, PERRL. negative: Scleral icterus - ENT ENT exam: Normal exam, Mucous membranes moist Ear exam: Normal external inspection Nasal Exam: Normal inspection Mouth exam: Normal external inspection - Neck Neck exam: Normal inspection - Respiratory Respiratory exam: Normal lung sounds bilaterally. negative: Respiratory distress - Cardiovascular Cardiovascular Exam: Regular rate, Normal rhythm, Normal heart sounds Peripheral Pulses: 2+: Radial (R), Radial (L), Dorsalis Pedis (R), Dorsalis Pedis (L) - GI/Abdominal GI/Abdominal exam: Soft. negative: Distended, Guarding, Tenderness - Rectal Rectal exam: Deferred - exam: Deferred - Extremities Extremities exam: Normal inspection - Back Back exam: Denies: CVA tenderness (R), CVA tenderness (L) - Neurological Neurological exam: Alert, CN II-XII intact, Oriented X3. negative: Altered, Motor sensory deficit - Psychiatric Psychiatric exam: Normal affect, Normal mood. negative: Agitated, Anxious, Depressed, Manic - Skin Skin exam: Dry, Intact, Normal color, Warm Results - Labs Result Diagrams: 06/29/19 06:45 06/29/19 06:45 Labs Last 24 Hours: Laboratory Results - last 24 hr 06/27/19 06/27/19 06/27/19 12:15 12:15 12:15 WBC 5.7 RBC 3.94 Hgb 9.4 L Hct 33.1 L MCV 84.0 MCH 23.8 L MCHC 28.4 L RDW 17.2 H Plt Count 278 MPV 9.5 Gran % 56.8 Lymphocytes % 29.6 Monocytes % 7.4 Eosinophils % 5.8 Basophils % 0.4 Absolute Neutrophils 3.25 Sodium 144 Potassium 3.9 Chloride 104 Carbon Dioxide 28.0 Anion Gap 12.0 BUN 19 Creatinine 1.3 H Estimated GFR 41 POC Glucose Random Glucose 125 H Hemoglobin A1c Calcium 9.2 NT-Pro-B Natriuret Pep 288.90 Urine Color Urine Appearance Urine pH Ur Specific [place] Urine Protein Urine Glucose (UA) Urine Ketones Urine Blood Urine Nitrite Urine Bilirubin Urine Urobilinogen Ur Leukocyte Esterase 10/05/19 10/05/19 10/05/19 12:24 14:00 15:10 WBC RBC Hgb Hct MCV MCH MCHC RDW Plt Count MPV Gran % Lymphocytes % Monocytes % Eosinophils % Basophils % Absolute Neutrophils Sodium Potassium Chloride Carbon Dioxide Anion Gap BUN Creatinine Estimated GFR POC Glucose 146 H 144 H Random Glucose Hemoglobin A1c Calcium NT-Pro-B Natriuret Pep Urine Color Yellow Urine Appearance Clear Urine pH 5.0 Ur Specific [place] 1.025 Urine Protein Negative Urine Glucose (UA) Negative Urine Ketones Negative Urine Blood Negative Urine Nitrite Negative Urine Bilirubin Negative Urine Urobilinogen 0.2 Ur Leukocyte Esterase Negative 06/27/19 06/27/19 06/27/19 17:00 17:10 21:30 WBC RBC Hgb Hct MCV MCH MCHC RDW Plt Count MPV Gran % Lymphocytes % Monocytes % Eosinophils % Basophils % Absolute Neutrophils Sodium Potassium Chloride Carbon Dioxide Anion Gap BUN Creatinine Estimated GFR POC Glucose Cancelled 112 H Cancelled Random Glucose Hemoglobin A1c Calcium NT-Pro-B Natriuret Pep Urine Color Urine Appearance Urine pH Ur Specific [place] Urine Protein Urine Glucose (UA) Urine Ketones Urine Blood Urine Nitrite Urine Bilirubin Urine Urobilinogen Ur Leukocyte Esterase 06/27/19 06/28/19 06/28/19 23:37 05:01 07:02 WBC RBC Hgb Hct MCV MCH MCHC RDW Plt Count MPV Gran % Lymphocytes % Monocytes % Eosinophils % Basophils % Absolute Neutrophils Sodium Potassium Chloride Carbon Dioxide Anion Gap BUN Creatinine Estimated GFR POC Glucose 77 113 H 146 H Random Glucose Hemoglobin A1c Calcium NT-Pro-B Natriuret Pep Urine Color Urine Appearance Urine pH Ur Specific [place] Urine Protein Urine Glucose (UA) Urine Ketones Urine Blood Urine Nitrite Urine Bilirubin Urine Urobilinogen Ur Leukocyte Esterase 06/28/19 08:36 WBC RBC Hgb Hct MCV MCH MCHC RDW Plt Count MPV Gran % Lymphocytes % Monocytes % Eosinophils % Basophils % Absolute Neutrophils Sodium Potassium Chloride Carbon Dioxide Anion Gap BUN Creatinine Estimated GFR POC Glucose Random Glucose Hemoglobin A1c 8.00 H Calcium NT-Pro-B Natriuret Pep Urine Color Urine Appearance Urine pH Ur Specific [place] Urine Protein Urine Glucose (UA) Urine Ketones Urine Blood Urine Nitrite Urine Bilirubin Urine Urobilinogen Ur Leukocyte Esterase VTE H&P Assessment - Risk for VTE Risk for VTE: Yes Risk Level: High Risk Assessment Date: 06/28/19 Risk Assessment Time: 10:53 VTE Orders Placed or Will Be Placed: Yes Plan - Detailed Diagnosis and Plan (1) Diabetes mellitus, type II Current Visit: No Status: Chronic Qualifiers: Diabetes mellitus emt intermediate insulin use: with emt intermediate use Diabetes mellitus complication status: with neurologic complications Diabetes mellitus complication detail: with polyneuropathy Qualified Code(s): E11.42 - Type 2 diabetes mellitus with diabetic polyneuropathy; Z79.4 - long-term (current) use of insulin Base Code: E11.9 - TYPE 2 DIABETES MELLITUS WITHOUT COMPLICATIONS Comment: 06/28/19 - pt had hypoglycemia event at home, glucose 64 at home with confusion - On novolog 70/30 40 units AM, glipizide 10mg BID, metformin 500mg BID - Glipizide 50% given and start low dose sliding scale. - Random glucose target <180mg/dL, prepandial <140. - AcHs accuchecks, ADA diet ordered (2) Hypoglycemia Current Visit: Yes Status: Acute Base Code: E16.2 - HYPOGLYCEMIA, UNSPECIFIED Comment: 06/28/19 -pt was found confused at home, by daughter -glucose was found to be 64, given glucose and brought to [facility] ER - glucose 125 on labs and in the mid 100's with accuchecks (3) Confusion Current Visit: No Status: Acute Base Code: R41.0 - DISORIENTATION, UNSPECIFIED Comment: 06/28/19 -pt is [id number] -reports she takes 70/30 novolog 40 units in the Am at home with glipizide 10mg BID and metformin 500mg BID but has not been sleeping well at night and has been napping during the day -additionally pt reports "not eating what I am suppose to" when home, meals consisting of microwave dinners -UA neg currently but pt was recently dx with UTI on previous ER visit (4) Renal insufficiency Current Visit: No Status: Acute Base Code: N28.9 - DISORDER OF KIDNEY AND URETER, UNSPECIFIED Comment: 06/28/19 - BUN/Cr/Gfr: 11/10.3/41 -metformin 500mg BID - Avoid nephrotoxic agents and repeat labs with morning labs -pt is refusing K supp with lasix, r/t instructions from PCP, likely r/t renal compromise (5) DVT prophylaxis Current Visit: No Status: Acute Base Code: [id number] - Comment: 06/28/19 - High risk due to multiple comorbidities and limited ambulation. - Lovenox 40mg SQ daily.
[2019-06-28] MEDS: ENOXAPARIN 30 MG/0.3 ML SYR SQ SCH (13:10)
[2019-06-28] MEDS ORDERED: NOVOLOG FLEXPEN (INSULIN ASPART) 100 UNITS/ML SQ ONE (17:50)
[2019-06-28] MEDS: NOVOLOG FLEXPEN (INSULIN ASPART) 100 UNITS/ML SQ SCH (17:57)
[2019-06-28] MEDS: SIMVASTATIN 20 MG TABLET PO SCH (22:14)
[2019-06-28] MEDS: PRAMIPEXOLE DI-HCL 0.25 MG TABLET PO SCH (22:15)
[2019-06-29] MEDS: PANTOPRAZOLE SODIUM 40 MG TABLET PO SCH (06:39)
[2019-06-29 07:00] LABS: ABSOLUTE NEUTROPHIL COUNT 4.07; BASO % 0.3 % (0-6); EOS % 5.4 % (0-6); GRAN % 64.7 % (47-80); HEMATOCRIT 32.6 % (35.0-47.0); HEMOGLOBIN 9.2 gm/dl (11.6-16.0); LYMPH % 21.5 % (16-45); MEAN CELL VOLUME 84.2 fl (81-97); MEAN CORPUSCULAR HGB CONC 28.2 g/dl (32-36); MEAN PLATELET VOLUME 8.6 fl (7.4-10.4); MONO % 8.1 % (0-9); PLATELET COUNT 264 K/uL (130-400); RED BLOOD COUNT 3.87 M/uL (3.80-5.40); RED CELL DISTRIBUTION WIDTH 16.6 % (11.5-14.5); WHITE BLOOD COUNT W/O DIFF 6.3 K/uL (4.2-12.2)
[2019-06-29 07:09] LABS: CREATININE 1.3 mg/dL (0.5-0.9); MEAN CORPUSCULAR HEMOGLOBIN 23.7 pg (27-33)
[2019-06-29] MEDS: NOVOLOG FLEXPEN (INSULIN ASPART) 100 UNITS/ML SQ SCH ×2 (07:44→12:27)
[2019-06-29] MEDS ORDERED: GLIPIZIDE 5 MG TABLET PO SCH (09:15)
[2019-06-29] MEDS: ENOXAPARIN 30 MG/0.3 ML SYR SQ SCH (09:16)
[2019-06-29] MEDS: ASPIRIN 81 MG TABEC PO SCH (09:16)
[2019-06-29] MEDS: DULOXETINE HCL 30 MG CAPSULE.DR PO SCH (09:16)
[2019-06-29] MEDS: FLUOXETINE HCL 10 MG CAPSULE PO SCH (09:16)
[2019-06-29] MEDS: METFORMIN ER HCL 500 MG TAB.ER.24H PO SCH (09:17)
[2019-06-29] MEDS: CEPHALEXIN 500 MG CAPSULE PO SCH (09:17)
[2019-06-29] MEDS: MULTIVITAMINS/MINERALS TABLET PO SCH (09:18)
[2019-06-29] MEDS: POTASSIUM CHLORIDE 20 MEQ TABLET PO SCH (09:18)
[2019-06-29] MEDS ORDERED: ISOSORBIDE DINITRATE 10 MG PO SCH (10:00)
[2019-06-29] MEDS ORDERED: FUROSEMIDE 20 MG TABLET PO SCH (10:00)
[2019-06-29] MEDS ORDERED: PRAMIPEXOLE DI-HCL 0.25 MG TABLET PO SCH (10:00)
--- NOTE | 2019-06-29 11:43 | Discharge Summary ---
Providers Discharge Summary Date: 06/29/19 Date of admission: 06/27/19 15:30 Expected Date of Discharge: 06/29/19 Attending physician: CAITIE STANLEY Primary care physician: Kyler Molina D.O. Consults: Consult Orders 06/27/19 16:30 Consult - Case Management NOW Comment: Reason For Exam: discharge planning Physical Exam - Vital Signs Vital Signs: Vital Signs - Last 24 Hrs Temp Pulse Pulse Resp BP Pulse Ox 06/29/19 07:48 75 06/29/19 07:21 97.7 F 77 20 154/72 94 L 06/28/19 20:30 98.1 F 81 20 103/83 96 06/28/19 16:00 97.5 F L 80 20 165/62 97 - General General Appearance: Alert, Oriented x3, Cooperative, No acute distress, Other (Well appearing, conversational) Limitations: No limitations - Head Head exam: Atraumatic, Normal inspection - Eye Eye exam: Normal appearance, PERRL. negative: Scleral icterus - ENT ENT exam: Normal exam, Mucous membranes moist Ear exam: Normal external inspection Nasal Exam: Normal inspection Mouth exam: Normal external inspection - Neck Neck exam: Normal inspection - Respiratory Respiratory exam: Normal lung sounds bilaterally. negative: Respiratory distress - Cardiovascular Cardiovascular Exam: Regular rate, Normal rhythm, Normal heart sounds Peripheral Pulses: 2+: Radial (R), Radial (L), Dorsalis Pedis (R), Dorsalis Pedis (L) - GI/Abdominal GI/Abdominal exam: Soft. negative: Distended, Guarding, Tenderness - Rectal Rectal exam: Deferred - exam: Deferred - Extremities Extremities exam: Normal inspection - Back Back exam: Denies: CVA tenderness (R), CVA tenderness (L) - Neurological Neurological exam: Alert, CN II-XII intact, Oriented X3. negative: Altered, Motor sensory deficit - Psychiatric Psychiatric exam: Normal affect, Normal mood. negative: Agitated, Anxious, Depressed, Manic - Skin Skin exam: Dry, Intact, Normal color, Warm Hospitalization - Hospitalization Admission Diagnosis: hypoglycemia - Problem List/Discharge Diagnosis (1) Diabetes mellitus, type II Current Visit: No Status: Chronic Discharge Diagnosis: Diabetes mellitus [facility] insulin use: with terminal gauger supervisor use Diabetes mellitus complication status: with neurologic complications Diabetes mellitus complication detail: with polyneuropathy Qualified Code(s): E11.42 - Type 2 diabetes mellitus with diabetic polyneuropathy; Z79.4 - termite treater helper (current) use of insulin Base Code: E11.9 - TYPE 2 DIABETES MELLITUS WITHOUT COMPLICATIONS Comment: 06/29/19 -no hypoglycemia events in 24 hours -cont to hold 70/30 insuling, glipizide 5mg BID -a1c 8, skilled home health ordered to assist with glucose control and pt to f/u PCP in 1-2 weeks 06/28/19 - pt had hypoglycemia event at home, glucose 64 at home with confusion - On novolog 70/30 40 units AM, glipizide 10mg BID, metformin 500mg BID - Glipizide 50% given and start low dose sliding scale. - Random glucose target <180mg/dL, prepandial <140. - AcHs accuchecks, ADA diet ordered (2) Hypoglycemia Current Visit: Yes Status: Acute Base Code: E16.2 - HYPOGLYCEMIA, UNSPECIFIE D Comment: 06/29/19 -no events in 24 hours, pt has been eating ADA diet and concerns for increased carb/sugar diet when home but pt has been eating inconsistently this week -meals on wheels to assist with better food options, care nurse rn to assist -pt to hold 70/30 novolog in the AM, 5mg glipizide BID until seen by PCP 06/28/19 -pt was found confused at home, by daughter -glucose was found to be 64, given glucose and brought to [facility] ER - glucose 125 on labs and in the mid 100's with accuchecks (3) Confusion Current Visit: No Status: Acute Base Code: R41.0 - DISORIENTATION, UNSPECIFIED Comment: 06/29/19 -pt a&ox4, daughter at bedside -home health to assist with after care and daughter verbalized she can help too -f/u PCP in 1-2 weeks 06/28/19 -pt is A7ox4 -reports she takes 70/30 novolog 40 units in the Am at home with glipizide 10mg BID and metformin 500mg BID but has not been sleeping well at night and has been napping during the day -additionally pt reports "not eating what I am suppose to" when home, meals consisting of microwave dinners -UA neg currently but pt was recently dx with UTI on previous ER visit (4) Renal insufficiency Current Visit: No Status: Acute Base Code: N28.9 - DISORDER OF KIDNEY AND URETER, UNSPECIFIED Comment: 06/29/19 -BUN 19-21 -Cr 1.3-1.3 -GFR 41-41 -pt reports baseline renal insufficiency and labs coordinate with that statement -pt is on low dose metformin 06/28/19 - BUN/Cr/Gfr: 19/.3/41 -metformin 500mg BID - Avoid nephrotoxic agents and repeat labs with morning labs -pt is refusing K supp with lasix, r/t instructions from PCP, likely r/t renal compromise (5) DVT prophylaxis Current Visit: No Status: Acute Base Code: [id number] - Comment: 06/28/19 - High risk due to multiple comorbidities and limited ambulation. - Lovenox 40mg SQ daily. - Hospitalization Course Disposition: [facility] Course: 97.9 F, HR 81, Bp 161/96, 20, 98% RA WBC 5.7, Hgb 9.4, Hct 33.1, plt 278 Na 144, K 3.9, Cl 104, Co2 28, [place] 12, BUN 9, Cr 1.3, GFR 41, glucose 125 BNP 288.9 UA neg Pt admitted for hypoglyemia at home, found confused with glucose 64 at home. This Am pt was 74, unknown why blood sugars are dropping, holding 70/30 AM dosing, decreased glipizide from 10mg BID to 5mg BID. Pt can have s/s mod cover for breakthrough but concerns to is eating inconsistently at home and continues to take her DM medication. Pt does report poor sleep at night but napping throughout the day and "eating what i am not suppose to" PCP [facility] ([facility]) Abnormal Labs: Abnormal Lab Results 06/27/19 06/27/19 06/27/19 Range/Units 12:15 12:15 12:24 Hgb 9.4 L (11.6-16.0) gm/dl Hct 33.1 L (35.0-47.0) % MCH 23.8 L (27-33) pg MCHC 28.4 L (32-36) g/dl RDW 17.2 H (11.5-14.5) % Carbon Dioxide (22-29) mmol/L Anion Gap (7-16) Creatinine 1.3 H (0.5-0.9) mg/dL POC Glucose 146 H (70-110) mg/dL Random Glucose 125 H (74-109) mg/dL Hemoglobin A1c (4.0-6.00) % 06/27/19 06/27/19 06/28/19 Range/Units 15:10 17:10 05:01 Hgb (11.6-16.0) gm/dl Hct (35.0-47.0) % MCH (27-33) pg MCHC (32-36) g/dl RDW (11.5-14.5) % Carbon Dioxide (22-29) mmol/L Anion Gap (7-16) Creatinine (0.5-0.9) mg/dL POC Glucose 144 H 112 H 113 H (70-110) mg/dL Random Glucose (74-109) mg/dL Hemoglobin A1c (4.0-6.00) % 06/28/19 06/28/19 06/28/19 Range/Units 07:02 08:36 19:57 Hgb (11.6-16.0) gm/dl Hct (35.0-47.0) % MCH (27-33) pg MCHC (32-36) g/dl RDW (11.5-14.5) % Carbon Dioxide (22-29) mmol/L Anion Gap (7-16) Creatinine (0.5-0.9) mg/dL POC Glucose 146 H 168 H (70-110) mg/dL Random Glucose (74-109) mg/dL Hemoglobin A1c 8.00 H (4.0-6.00) % 06/29/19 06/29/19 06/29/19 Range/Units 06:45 06:45 07:25 Hgb 9.2 L (11.6-16.0) gm/dl Hct 32.6 L (35.0-47.0) % MCH 23.7 L (27-33) pg MCHC 28.2 L (32-36) g/dl RDW 16.6 H (11.5-14.5) % Carbon Dioxide 31.0 H (22-29) mmol/L Anion Gap 6.0 L (7-16) Creatinine 1.3 H (0.5-0.9) mg/dL POC Glucose 171 H (70-110) mg/dL Random Glucose 189 H (74-109) mg/dL Hemoglobin A1c (4.0-6.00) % Condition at Discharge: (2) Stable Discharge Medications - Discharge Medications Home Medications: Ambulatory Orders Duloxetine HCl [Cymbalta] 60 mg PO DAILY 04/01/14 [Last Taken 03/22/19] Fluoxetine HCl [Prozac] 10 mg PO DAILY 04/01/14 [Last Taken 03/22/19] Glipizide 10 mg PO BID 04/01/14 [Last Taken 03/22/19] Isosorbide Dinitrate 10 mg PO BID 04/01/14 [Last Taken 03/22/19] Loratadine [Claritin] 10 mg PO QHS 04/01/14 [Last Taken 03/22/19] Lovastatin 40 mg PO DAILY 04/01/14 [Last Taken 03/22/19] Meloxicam [Mobic] 15 mg PO DAILY 04/01/14 [Last Taken 03/22/19] Omeprazole Magnesium [Prilosec Otc] 20 mg PO DAILY 04/01/14 [Last Taken 03/22/19] Hydroxyzine HCl 25 mg PO QHS 09/14/18 [Last Taken 03/22/19] Metformin HCl [Metformin HCl ER] 500 mg PO QAM 09/14/18 [Last Taken 03/22/19] Pramipexole Di-HCl [Pramipexole ER] 0.25 mg PO QAM 09/14/18 [Last Taken 03/22/19] Aspirin [Aspirin EC] 81 mg PO DAILY 06/25/19 [Last Taken Unknown] Calcium Carb/Mag Oxide/Cu/Zinc [Ra Pqycouv-Mmr-Jqkp Tablet] 1 each PO DAILY 06/25/19 [Last Taken Unknown] Cephalexin [Keflex] 500 mg PO BID #14 cap 06/25/19 [Last Taken Unknown] Losartan Potassium 50 mg PO DAILY 06/25/19 [Last Taken Unknown] Multivitamin [Multi-Vitamin Daily] 1 each PO DAILY 06/25/19 [Last Taken Unknown] Pramipexole Di-HCl [Pramipexole ER] 0.75 mg PO QHS 06/25/19 [Last Taken Unknown] Insulin Glargine,Hum.rec.anlog [Lantus Solostar] 70 unit SQ DAILY 06/27/19 [Last Taken Unknown] Acetaminophen [Tylenol 500Mg Tab] 1,000 mg PO Q6H PRN tablet 06/29/19 [Last Taken Unknown] Albuterol Sulfate [Proair Hfa] 2 puff IH Q4H PRN 06/29/19 [Last Taken Unknown] Furosemide [Lasix] 10 mg PO DAILY 06/29/19 [Last Taken Unknown] Furosemide [Lasix] 10 mg PO DAILY tablet 06/29/19 [Last Taken Unknown] Insulin Aspart [Novolog Flexpen] 1 unit SQ TIDINS ml 06/29/19 [Last Taken Unknown] Pramipexole Di-HCl [Pramipexole Dihydrochloride] 0.25 mg PO DAILY tablet 06/29/19 [Last Taken Unknown] Pramipexole Di-HCl [Pramipexole Dihydrochloride] 0.75 mg PO QHS tablet 06/29/19 [Last Taken Unknown] Discharge Plan - Discharge Instructions Activity at Discharge: Increase Activity as Tolerated Diet at Discharge: Advance to Usual Diet, Diabetic Diet, Low Fat, Low Cholesterol, Low Salt Diet Instructions: Hypoglycemia in a Person with Diabetes (ED) Additional Instructions: Check your blood sugar three times daily Do not miss any meals Decrease your Insulin, you report taking insulin in morning Return immediately if your blood sugar drops, you have any symptoms of low blood sugar You are not to be alone today or tomorrow If your have a morning blood sugar over 200 in your normal diet, you can take 10 units of your lantus for the day but make sure your are eating 3 meals daily Quality Measures - Quality Measures Quality Measures: Advance Directives, Documentation of Current Medications in Medical Record, Elder Maltreatment Screen and Follow-Up Plan, Screening for High Blood Pressure and F/U Documented - Current Medications Quality Measure: Measure #130: Documentation of Current Medications Documentation of Current Medications: <Current Medications Documented/Reviewed> [[id number]] - Blood Pressure Screening Quality Measure: Screening for High Blood Pressure and Follow-Up Documented Does Patient Have Any of the Following: Active Dx of HTN Blood Pressure Classification: Pre-Hypertensive BP Reading Systolic Measurement: 128 Diastolic Measurement: 54 Screening for High Blood Pressure: Patient Exclusion, Hx of HTN [G9744] - Advance Directives Quality Measure: Measure #47: Care Plan Advance Directives Established: No Advance Directives Information Provided To Patient: No Advance Directives on File: No Living Will: No Power of Transactional Attorney: Yes Power of Transactional Attorney Name: JOSE WILKS Advance Care Planning: <Care Plan/Decision Maker Documented; Discussed & Documented> [[id number]] - Elder Abuse Suspicion Index Screening: Elder Abuse Suspicion Index Screening Rely on people for bathing, dressing, shopping, banking, etc: Yes Prevented from getting food, clothes, medication, etc: No Made to feel shamed or threatened by someone: No Forced to sign papers or use money against will: No Feel afraid, touched in ways not wanted or hurt physically: No Poor eye contact, withdrawn, malnourished, cuts or bruises: No Screening Result: Negative result EASI Reference Information: Sy STANTON, Inocencio C, Fahad D, Ed Lizama.Development and validation of a tool to assist physicians identification of elder abuse: The Elder Abuse Suspicion Index (EASI ). Journal of Elder Abuse and Neglect, 2008; 20 (3): 276-300. - Elder Maltreatment Screen Quality Measures: Elder Maltreatment Screen and Follow-Up Plan Elder Maltreatment Screen: <Negative, No Follow-Up Plan Required> [[id number]]
[2019-06-29] MEDS ORDERED: LORATADINE 10 MG TABLET PO SCH (22:00)
== END 2019-06-29 16:05 | disposition home health service (06) ==
LOC: ER 11:56 → MEDSURG 15:30
PROVIDERS: ADMIT Internal Medicine; ATTEND Internal Medicine
DX: E16.2 Hypoglycemia, unspecified (principal); E11.42 Type 2 diabetes mellitus with diabetic polyneuropathy; Z79.4 Long term (current) use of insulin; Z79.84 Long term (current) use of oral hypoglycemic drugs; R41.0 Disorientation, unspecified; N28.9 Disorder of kidney and ureter, unspecified; I10 Essential (primary) hypertension; J44.9 Chronic obstructive pulmonary disease, unspecified; R32 Unspecified urinary incontinence; D64.9 Anemia, unspecified; M19.90 Unspecified osteoarthritis, unspecified site; G47.33 Obstructive sleep apnea (adult) (pediatric); Z99.81 Dependence on supplemental oxygen; Z87.891 Personal history of nicotine dependence; Z86.14 Personal history of Methicillin resistant Staphylococcus aureus infection; Z23 Encounter for immunization
CPT/HCPCS: 99285 ×2; 85025 ×2; 80048 ×2; 36416 ×3; 83036; 82948 ×3; 81003; 83880; 94760; 90686; G0378 ×3; 99220; J1650

== ENCOUNTER 2019-09-06 10:42 | Inpatient (IN) | payer MEDICARE, BC ==
--- NOTE | 2019-09-06 10:55 | Emergency Department Record ---
History of Present Illness - General Stated Complaint: CONFUSION/BLOOD SUGAR UP/BP HIGH Time Seen by Provider: 09/06/19 10:44 Source: Patient, Family Mode of Arrival: Wheelchair Limitations: No limitations - History of Present Illness Initial Comments: 84 yo female presents with confusion over the last 4-5 days. The patient is alert, no falls or syncope but gets confused to the context of her situation, talks about unrelated things, or seems to fidget with her hands or objects in a confused manner. No fever. No headache. No vomiting. She had similar issues in June with difficulties with blood sugar control. The patient is alert, aware of name, family, most of her medical history but easily looses track of the conversation or randomly changes topics. She denies pain. No vomiting or diarrhea. She has had a recent UTI. The daughter states the sugars range from 59 to the 300's. She has a log but not with her. PCP is Tracy. She lives alone. Daughter lives nearby. She seems to have slowed her walking in the last three weeks and seems weaker in general as well. She gets her medication is prefilled mail order packs. She takes her own medications. MD Complaint: Confusion -: Days(s) Consistency: Intermittent Context: History of similar presentation Associated Symptoms: Denies other symptoms - [place] Coma Scale Eye Response: (4) Open spontaneously Motor Response: (6) Obeys commands Verbal Response: (5) Oriented Magdy Total: 15 - Related Data Previous Rx's Medication Instructions Recorded Acetaminophen [Tylenol 500Mg Tab] 1,000 mg PO Q6H PRN tablet 06/29/19 Furosemide [Lasix] 10 mg PO DAILY tablet 06/29/19 Insulin Aspart [Novolog Flexpen] 1 unit SQ TIDINS ml 06/29/19 Pramipexole Di-HCl [Pramipexole 0.25 mg PO DAILY tablet 06/29/19 Dihydrochloride] Pramipexole Di-HCl [Pramipexole 0.75 mg PO QHS tablet 06/29/19 Dihydrochloride] Allergies Allergy/AdvReac Type Severity Reaction Status Date / Time No Known Drug Allergies Allergy Verified 09/06/19 10:54 Review of Systems Constitutional: Denies: Chills, Fever, Malaise, Weakness Eyes: Denies: Eye discharge, Eye pain, Photophobia, Vision change ENT: Denies: Congestion, Throat pain Respiratory: Denies: Cough, Dyspnea Cardiovascular: Reports: Edema (chronic). Denies: Chest pain, Palpitations, Syncope Endocrine: Denies: Fatigue, Polydipsia, Polyuria Gastrointestinal: Denies: Abdominal pain, Constipation, Diarrhea, Nausea, Vomiting Genitourinary: Denies: Dysuria, Urgency Musculoskeletal: Denies: Arthralgia, Back pain, Myalgia Skin: Denies: Bruising, Change in color, Rash Neurological: Reports: Confusion. Denies: Numbness Psychiatric: Denies: Anxiety Hematological/Lymphatic: Denies: Easy bleeding, Easy bruising Past Medical History - SOCIAL HISTORY Smoking Status: Former smoker Drug Use: None - RESPIRATORY Hx Respiratory Disorders: Yes Hx Bronchitis: Yes Hx COPD: Yes Hx Sleep Apnea: Yes Hx of CPAP: Yes (does not wear) Comment:: 02 2L all times - CARDIOVASCULAR Hx Cardio Disorders: Yes Hx Hypertension: Yes - NEURO Hx Neuro Disorders: No - GI Hx GI Disorders: No - Hx Genitourinary Disorders: Yes Hx Bladder Problem: Yes (incontinence) Hx UTI: Yes - ENDOCRINE Hx Endocrine Disorders: Yes Hx Diabetes: Yes (oral and insulin) Hx Thyroid Disease: No - MUSCULOSKELETAL Hx Musculoskeletal Disorders: Yes Hx Arthritis: Yes Hx Back Injury: Yes - PSYCH Hx Psych Problems: Yes Hx Anxiety: Yes Hx Depression: Yes - HEMATOLOGY/ONCOLOGY Hx Hematology/Oncology Disorders: No Family Medical History Hx Cancer: Father Hx Heart Disease: Mother Physical Exam - General General Appearance: Alert, Cooperative, No acute distress Limitations: Other (Minimal limitation, follows conversation mostly but occassionaly random deviation) - Head Head exam: Atraumatic, Normocephalic, Normal inspection Head exam detail: negative: Abrasion, Contusion, Hematoma, Laceration - Eye Eye exam: Normal appearance, PERRL. negative: Conjunctival injection, Scleral icterus - ENT ENT exam: Normal exam, Mucous membranes moist Ear exam: Normal external inspection Nasal Exam: Normal inspection Mouth exam: Normal external inspection - Neck Neck exam: Normal inspection, Full ROM. negative: Lymphadenopathy, Meningismus, Tenderness - Respiratory Respiratory exam: Normal lung sounds bilaterally. negative: Accessory muscle use, Chest wall tenderness, Decreased breath sounds, Respiratory distress, Rhonchi, Stridor, Wheezes - Cardiovascular Cardiovascular Exam: Regular rate, Normal rhythm, Normal heart sounds Peripheral Pulses: 2+: Radial (R), Radial (L) - GI/Abdominal GI/Abdominal exam: Soft. negative: Tenderness - Rectal Rectal exam: Deferred - exam: Deferred - Extremities Extremities exam: Normal inspection, Pedal edema (chronic skin changes). n egative: Calf tenderness, Tenderness - Back Back exam: Denies: CVA tenderness (R), CVA tenderness (L) - Neurological Neurological exam: Alert, Altered, CN II-XII intact. negative: Motor sensory deficit - Psychiatric Psychiatric exam: Normal affect, Normal mood. negative: Agitated, Anxious - Skin Skin exam: Dry, Intact, Normal color, Warm Course - Reevaluation(s) Reevaluation #1: 09/06/19 11:50 Glucose 40 Still alert and conversational Dextrose ordered 09/06/19 11:55 The US is a cath specimen. It is consistent with UTI Rocephin ordered CR is 1.3 She will be admitted for symptomatic hypoglycemia and UTI 09/06/19 11:56 HCT negative for acute process Medical Decision Making - Lab Data Result diagrams: 09/06/19 11:00 09/06/19 11:00 Disposition Disposition: Admit Clinical Impression: Confusion, Physical deconditioning, COPD (chronic obstructive pulmonary disease), Hypoglycemia, Urinary tract infection Disposition: Still a Patient at [facility] Decision to Admit: Admit from ER Decision to Admit Date: 09/06/19 Decision to Admit Time: 11:56 Condition: (2) Stable Time of Disposition: 11:56 Quality - Quality Measures Quality Measures: N/A - Blood Pressure Screening Does Patient Have Any of the Following: Active Dx of HTN Blood Pressure Classification: Hypertensive Reading Systolic Measurement: 189 Diastolic Measurement: 79 Screening for High Blood Pressure: Patient Exclusion, Hx of HTN [G9744]
[2019-09-06 11:08] LABS: ABSOLUTE NEUTROPHIL COUNT 3.68; BASO % 0.4 % (0-6); EOS % 4.7 % (0-6); GRAN % 52.6 % (47-80); HEMATOCRIT 34.7 % (35.0-47.0); HEMOGLOBIN 9.7 gm/dl (11.6-16.0); MEAN CELL VOLUME 81.5 fl (81-97); MONO % 8.3 % (0-9); PLATELET COUNT 260 K/uL (130-400); RED BLOOD COUNT 4.26 M/uL (3.80-5.40); RED CELL DISTRIBUTION WIDTH 16.9 % (11.5-14.5)
[2019-09-06 11:11] LABS: MEAN CORPUSCULAR HEMOGLOBIN 22.7 pg (27-33)
[2019-09-06 11:16] LABS: URINE APPEARANCE CLEAR; URINE BILIRUBIN NEGATIVE (NEGATIVE); URINE BLOOD LARGE (NEGATIVE); URINE COLOR YELLOW; URINE GLUCOSE (UA) NEGATIVE (NEGATIVE); URINE KETONE NEGATIVE (NEGATIVE); URINE LEUKOCYTE ESTERASE TRACE (NEGATIVE); URINE NITRITE POSITIVE (NEGATIVE); URINE PROTEIN NEGATIVE (NEGATIVE); URINE UROBILINOGEN 0.2 E.U./dL (0.20 - 1.00)
[2019-09-06 11:17] LABS: BILIRUBIN,TOTAL < 0.20 mg/dL (0.2-1.0); BLOOD UREA NITROGEN 21 mg/dL (8-23); CREATININE 1.3 mg/dL (0.5-0.9); EST GLOMERULAR FILTRATION RATE 41 mL/min
[2019-09-06 11:18] LABS: TOTAL PROTEIN 6.7 g/dL (6.6-8.7)
[2019-09-06 11:22] LABS: ALT/SGPT 8 U/L (<33)
[2019-09-06 11:23] LABS: ALB/GLOB RATIO 1.2 (1.1-1.8); ALBUMIN 3.6 g/dL (4.0-5.0); ALKALINE PHOSPHATASE 100 U/L (35-104); AST/SGOT 14 U/L (10.0-35.0)
[2019-09-06 11:26] LABS: URINE BACTERIA 2+; URINE RBC 36 - 50 (NONE SEEN)
[2019-09-06 11:33] LABS: THYROID STIMULATING HORMONE 4.45 uIU/mL (0.270-4.20)
--- NOTE | 2019-09-06 11:36 | CT SCAN REPORT ---
EXAMINATION: CT Head without IV Contrast EXAM DATE: 09/06/2019 11:33 AM TECHNIQUE: Standard protocol CT images of the head were obtained without intravenous contrast. Dumont l and sagittal reconstructed images were created. INDICATION: confusion COMPARISON: 06/25/2019 HAND DOMINANCE: Unknown. ENCOUNTER: Not applicable FINDINGS: Patient's had lens implants bilaterally. Visualized paranasal sinuses are clear. Opacificat ion of a few inferior mastoid air cells bilaterally. No intracranial hemorrhage. No mass, mass effect, or midline shift. Mild volume loss. Ventricles are not prominent out of proportion to sulci. Mild degree of hypodensity in the supratentorial brain sugg estive of chronic small vessel ischemic changes. IMPRESSION: 1. Mild degree of hypodensity in the supratentorial brain suggestive of chronic small vessel ischem ic changes. Dictated by: Corona Steven DO on 09/06/2019 11:31 AM. .
[2019-09-06 11:49] LABS: GLUCOSE,RANDOM 40 mg/dL (74-109)
[2019-09-06] MEDS ORDERED: DEXTROSE 50 % IVP 50 ML DISP.SYRIN IVP ONE (11:50)
[2019-09-06] MEDS ORDERED: CEFTRIAXONE 1GM/50ML BAG 1 GM/50 ML BAG IVPB ONE (11:55)
[2019-09-06] MEDS ORDERED: CEFTRIAXONE 1GM/50ML BAG 1 GM/50 ML BAG IVPB SCH (13:43)
[2019-09-06] MEDS ORDERED: NYSTATIN 15 GM POWDER TP PRN (13:43)
--- NOTE | 2019-09-06 15:18 | History & Physical ---
History of Present Illness - Date of Service Date of Service for History & Physical: 09/07/19 - History of Present Illness Admitting Diagnosis: hypoglycemia, uti History of Present Illness: 84 yr old female presented to [facility] ER for confusion for 4-5 days per daughter. Pt has had h/o UTI, confusion, hyper- and hypoglycemia, chronic cellulitis and lymphedema. Pt was oriented to person, place, and time but not situation in ER. CT head neg for acute process, age r/t small vessel ischemia noted Glucose on labs revealed hypogylcemia at 40, given amp D50 and repeat check 213 UA positive for infection, culture pending Started on Rocephin 1gm BID, holding all DM meds DNR signed by daughter for this admission 09/06/19 09/06/19 09/06/19 11:00 11:00 11:15 WBC 7.0 RBC 4.26 Hgb 9.7 L Hct 34.7 L MCV 81.5 MCH 22.7 L MCHC 28.0 L RDW 16.9 H Plt Count 260 Absolute Neutrophils 3.68 Sodium 143 Potassium 4.8 H Chloride 104 Carbon Dioxide 28.0 Anion Gap 11.0 BUN 21 Creatinine 1.3 H Estimated GFR 41 Random Glucose 40 L* Calcium 9.5 Total Bilirubin < 0.20 L AST 14 ALT 8 Alkaline Phosphatase 100 Total Protein 6.7 Albumin 3.6 L Globulin 3.1 Albumin/Globulin Ratio 1.2 TSH 4.45 H Urine Color Yellow Urine Appearance Clear Urine pH 7.0 Ur Specific [place] 1.015 Urine Protein Negative Urine Glucose (UA) Negative Urine Ketones Negative Urine Blood Large H Urine Nitrite Positive H Urine Bilirubin Negative Urine Urobilinogen 0.2 Ur Leukocyte Esterase Trace H Urine RBC 36 - 50 Urine WBC 6 - 10 Ur Epithelial Cells 7 - 10 Urine Bacteria 2+ 09/06/19 10:49 Temperature 97.8 F Pulse Rate 97 H Respiratory 20 Rate Respiratory WNL Depth Respiratory WNL Effort Respiratory WNL Pattern Blood Pressure 189/79 Blood Pressure Sitting Position Pulse Ox 94 L Oxygen Flow 2 Rate Oxygen Delivery Nasal Cannula Method 09/06/19 Pt resting in recliner chair, needed staff x3 to assist pt to scale and back to recliner with gait belt and 4 wheeled walker. Pt is slow to respond but a&ox4 at this time. BLE swollen, mild erythema but no warmth, no drainage. Pt moving all extremities with some effort. Pulses DP/PT +2, lungs dim, heart reg rate. IV ABX for uti, PT eval tomorrow. glucose monitoring q4 hours as pt blood sugar dropped again before dinner. Concerns for pt over medicating with assisted insulin. PCP [place] Travel Screening - Travel/Exposure Within Last 30 Days Have you traveled within the last 30 days?: No - Travel/Exposure Within Last Year Have you traveled outside the [place] in the last year?: No - Additonal Travel Details Have you been exposed to anyone with a communicable illness?: No Review of Systems Constitutional: Denies: Chills, Fever, Malaise, Weakness Eyes: Denies: Eye discharge, Eye pain, Photophobia, Vision change ENT: Denies: Congestion, Throat pain Respiratory: Denies: Cough, Dyspnea Cardiovascular: Reports: Edema (chronic). Denies: Chest pain, Palpitations, Syncope Endocrine: Denies: Fatigue, Polydipsia, Polyuria Gastrointestinal: Denies: Abdominal pain, Constipation, Diarrhea, Nausea, Vomiting Genitourinary: Denies: Dysuria, Urgency Musculoskeletal: Denies: Arthralgia, Back pain, Myalgia Skin: Denies: Bruising, Change in color, Rash Neurological: Reports: Confusion. Denies: Numbness Psychiatric: Denies: Anxiety Hematological/Lymphatic: Denies: Easy bleeding, Easy bruising Past Medical History - SOCIAL HISTORY Smoking Status: Former smoker Alcohol Use: Rare Alcohol Use Comment: Holidays Drug Use: None - RESPIRATORY Hx Respiratory Disorders: Yes Hx Bronchitis: Yes Hx COPD: Yes Hx Sleep Apnea: Yes Hx of CPAP: Yes (does not wear) Comment:: 02 2L all times - CARDIOVASCULAR Hx Cardio Disorders: Yes Hx Hypertension: Yes - NEURO Hx Neuro Disorders: No - GI Hx GI Disorders: No - Hx Genitourinary Disorders: Yes Hx Bladder Problem: Yes (incontinence) Hx UTI: Yes - ENDOCRINE Hx Endocrine Disorders: Yes Hx Diabetes: Yes (oral and insulin) Hx Thyroid Disease: No - MUSCULOSKELETAL Hx Musculoskeletal Disorders: Yes Hx Arthritis: Yes Hx Back Injury: Yes - PSYCH Hx Psych Problems: Yes Hx Anxiety: Yes Hx Depression: Yes - HEMATOLOGY/ONCOLOGY Hx Hematology/Oncology Disorders: No Family Medical History Any Significant Family History?: Yes Hx Cancer: Father Hx Heart Disease: Mother H&P Meds/Allergies - Allergies Allergies: Allergies Allergy/AdvReac Type Severity Reaction Status Date / Time No Known Drug Allergies Allergy Verified 09/06/19 10:54 - Home Medications Previous Rx's Medication Instructions Recorded Acetaminophen [Tylenol 500Mg Tab] 1,000 mg PO Q6H PRN tablet 06/29/19 Furosemide [Lasix] 10 mg PO DAILY tablet 06/29/19 Insulin Aspart [Novolog Flexpen] 1 unit SQ TIDINS ml 06/29/19 Pramipexole Di-HCl [Pramipexole 0.25 mg PO DAILY tablet 06/29/19 Dihydrochloride] Pramipexole Di-HCl [Pramipexole 0.75 mg PO QHS tablet 06/29/19 Dihydrochloride] - Active Medications Active Medications: Current Medications CEFTRIAXONE 1GM/50ML BAG (Ceftriaxone 1 Gm-D5w Bag) 1 gm in 50 mls @ 100 mls/hr IVPB 0100,1300 LENA Nystatin (Nystop) 15 gm TP ASDIR PRN PRN Reason: RASH Physical Exam - Vital Signs Vital Signs: Vital Signs - Last 24 Hrs Temp Pulse Pulse Resp BP BP Pulse Ox 09/06/19 14:42 18 99 09/06/19 14:33 24 09/06/19 13:43 97.7 F 22 178/111 98 09/06/19 13:36 20 L 18 170/73 100 09/06/19 12:06 79 20 153/60 100 09/06/19 10:49 97.8 F 97 H 20 189/79 94 L - General General Appearance: Alert, Cooperative, No acute distress Limitations: Other (Minimal limitation, follows conversation mostly but occassionaly random deviation) - Head Head exam: Atraumatic, Normocephalic, Normal inspection Head exam detail: negative: Abrasion, Contusion, Hematoma, Laceration - Eye Eye exam: Normal appearance, PERRL. negative: Conjunctival injection, Scleral icterus - ENT ENT exam: Normal exam, Mucous membranes moist Ear exam: Normal external inspection Nasal Exam: Normal inspection Mouth exam: Normal external inspection - Neck Neck exam: Normal inspection, Full ROM. negative: Lymphadenopathy, Meningismus, Tenderness - Respiratory Respiratory exam: Normal lung sounds bilaterally. negative: Accessory muscle use, Chest wall tenderness, Decreased breath sounds, Respiratory distress, Rhonchi, Stridor, Wheezes - Cardiovascular Cardiovascular Exam: Regular rate, Normal rhythm, Normal heart sounds Peripheral Pulses: 2+: Radial (R), Radial (L) - GI/Abdominal GI/Abdominal exam: Soft. negative: Tenderness - Rectal Rectal exam: Deferred - exam: Deferred - Extremities Extremities exam: Normal inspection, Pedal edema (chronic skin changes). negative: Calf tenderness, Tenderness - Back Back exam: Denies: CVA tenderness (R), CVA tenderness (L) - Neurological Neurological exam: Alert, Altered, CN II-XII intact. negative: Motor sensory deficit - Psychiatric Psychiatric exam: Normal affect, Normal mood. negative: Agitated, Anxious - Skin Skin exam: Dry, Intact, Normal color, Warm Results - Labs Result Diagrams: 09/07/19 06:30 09/07/19 06:30 Labs Last 24 Hours: Laboratory Results - last 24 hr 09/06/19 09/06/19 09/06/19 11:00 11:00 11:15 WBC 7.0 RBC 4.26 Hgb 9.7 L Hct 34.7 L MCV 81.5 MCH 22.7 L MCHC 28.0 L RDW 16.9 H Plt Count 260 MPV 9.0 Gran % 52.6 Lymphocytes % 34.0 Monocytes % 8.3 Eosinophils % 4.7 Basophils % 0.4 Absolute Neutrophils 3.68 Sodium 143 Potassium 4.8 H Chloride 104 Carbon Dioxide 28.0 Anion Gap 11.0 BUN 21 Creatinine 1.3 H Estimated GFR 41 Random Glucose 40 L* Calcium 9.5 Total Bilirubin < 0.20 L AST 14 ALT 8 Alkaline Phosphatase 100 Total Protein 6.7 Albumin 3.6 L Globulin 3.1 Albumin/Globulin Ratio 1.2 TSH 4.45 H Urine Color Yellow Urine Appearance Clear Urine pH 7.0 Ur Specific [place] 1.015 Urine Protein Negative Urine Glucose (UA) Negative Urine Ketones Negative Urine Blood Large H Urine Nitrite Positive H Urine Bilirubin Negative Urine Urobilinogen 0.2 Ur Leukocyte Esterase Trace H Urine RBC 36 - 50 Urine WBC 6 - 10 Ur Epithelial Cells 7 - 10 Urine Bacteria 2+ VTE H&P Assessment - Risk for VTE Risk for VTE: Yes Risk Level: Moderate Risk Assessment Date: 09/07/19 Risk Assessment Time: 17:23 VTE Orders Placed or Will Be Placed: Yes Plan - Inpatient Certification Inpatient Certification: Admit to inpatient care: Based on my medical assessment, after consideration of patient's risk factors (age, co-morbidities and patient presenting symptoms and acuity), I expect that this patient will remain in the hospital greater than or equal to two midnights and that the services needed warrant inpatient care because: Patient Risk Factors: hypogycemia, sepsis Estimated length of stay: [] The patient may reasonably be expected to be discharged or transferred to a hospital within 96 hours after admission to [facility]. Services needed: close glucose monitoring, IV abx and glucose, ADL assistance Post hospital care (if known): [] I certify that my determination is in accordance with my understanding of Medicare requirements for reasonable and necessary inpatient services. 09/07/19 17:24 - Detailed Diagnosis and Plan (1) Confusion Current Visit: Yes Status: Acute Base Code: R41.0 - DISORIENTATION, UNSPECIFIED Comment: 09/06/19 -pt a&ox4, sitting in recliner -glucose 40 in ER, UTI per UA -pt has meds pre packaged but administers insulin by herself, concerns for over mediating r/t confusion (2) Hypoglycemia Current Visit: Yes Status: Acute Base Code: E16.2 - HYPOGLYCEMIA, UNSPECIFIED Comment: 09/06/19 -40 in ER, given amp d50, dropped again before dinner -no levermir or other DM meds (3) Physical deconditioning Current Visit: Yes Status: Acute Base Code: R53.81 - OTHER MALAISE Comment: 09/06/19 -pt needed x3 assist to stand an ambulate to scale and back to recliner -PT eval tomorrow -pt up with assist (4) Urinary tract infection Current Visit: Yes Status: Acute Base Code: N39.0 - URINARY TRACT INFECTION, SITE NOT SPECIFIED Comment: 09/06/19 - UA + for leukocytes, nitirites and +2 bacteria - UCX pending - Continue on Rocephin 1 gm bid (5) DNR (do not resuscitate) Current Visit: No Status: Acute Base Code: Z66 - DO NOT RESUSCITATE Comment: 09/06/19: - Patient is DNR.
[2019-09-07] MEDS: CEFTRIAXONE 1GM/50ML BAG 1 GM/50 ML BAG IVPB SCH ×3 (01:39→16:19)
[2019-09-07 07:09] LABS: ABSOLUTE NEUTROPHIL COUNT 4.11; BASO % 0.3 % (0-6); GRAN % 60.8 % (47-80); HEMATOCRIT 34.8 % (35.0-47.0); HEMOGLOBIN 9.6 gm/dl (11.6-16.0); LYMPH % 24.2 % (16-45); MEAN CELL VOLUME 81.9 fl (81-97); MEAN CORPUSCULAR HGB CONC 27.6 g/dl (32-36); MEAN PLATELET VOLUME 9.5 fl (7.4-10.4); MONO % 9.7 % (0-9); PLATELET COUNT 270 K/uL (130-400); RED BLOOD COUNT 4.25 M/uL (3.80-5.40); WHITE BLOOD COUNT W/O DIFF 6.8 K/uL (4.2-12.2)
[2019-09-07 07:26] LABS: MEAN CORPUSCULAR HEMOGLOBIN 22.5 pg (27-33)
[2019-09-07 07:27] LABS: RED CELL DISTRIBUTION WIDTH 16.8 % (11.5-14.5)
[2019-09-07 07:34] LABS: CREATININE 1.2 mg/dL (0.5-0.9)
[2019-09-07] MEDS: METFORMIN ER HCL 500 MG TAB.ER.24H PO SCH (13:52)
[2019-09-07] MEDS: PANTOPRAZOLE SODIUM 40 MG TABLET PO SCH (13:52)
[2019-09-07] MEDS: PRAMIPEXOLE DI-HCL 0.25 MG TABLET PO SCH ×2 (13:52→21:03)
[2019-09-07] MEDS: FUROSEMIDE 20 MG TABLET PO SCH (13:52)
[2019-09-07] MEDS: DULOXETINE HCL 30 MG CAPSULE.DR PO SCH (13:52)
[2019-09-07] MEDS: LOSARTAN POTASSIUM 25 MG TABLET PO SCH (13:53)
[2019-09-07] MEDS: ASPIRIN 81 MG TABEC PO SCH (13:53)
--- NOTE | 2019-09-07 14:55 | Rehab Evaluation ---
Patient Information - Patient Information Diagnosis: UTI, hypoglycemia Ordered Treatment: PT Evaluate and Treat Status: Initial Evaluation History: Detail (The patient presented in ED on 09/06 with complaints of increased confusion over the last 4-5 days and difficulty walking in the last 3 weeks.) Past Medical/Surgical Hx: PAST MEDICAL/SURGICAL HISTORY Past Surgical History hysterectomy cholecystectomy 2000 hip PMH - Respiratory Hx Respiratory Disorders Yes Hx Bronchitis Yes Hx Chronic Obstructive Yes Pulmonary Disease (COPD) Hx Sleep Apnea Yes Hx of CPAP Yes: does not wear Comment: 02 2L all times PMH - Cardiovascular Hx Cardiovascular Disorders Yes Hx Hypertension Yes PMH - Neuro Hx Neurological Disorders No PMH - GI Hx Gastrointestinal Disorders No PMH - Hx Genitourinary Disorders Yes Hx Bladder Problem Yes: incontinence Hx Urinary Tract Infection Yes PMH - Endocrine Hx Endocrine Disorders Yes Hx Diabetes Yes: oral and insulin Hx Thyroid Disease No PMH - Musculoskeletal Hx Musculoskeletal Disorders Yes Hx Arthritis Yes Hx Back Injury Yes PMH - Psych Hx Psychiatric Problems Yes Hx Anxiety Yes Hx Depression Yes PMH - Hematology/Oncology Hx Hematology/Oncology No Disorders Premorbid Status: Detail (Prior to admission the patient was independent with ambulation with 4 wheeled walker and 2 L of O2. The patient was dressing independently and her daughter assisted with showering once a week. The patient's daughter completes her grocery shopping and laundry and other health navigator are completed by a paint line supervisor once a week. The patient receives meals on wheels.) Social History: Detail (The patient lives alone in an apartment with no stairs at the enterance. The bathroom is equipped with a walk in shower with a seat and grab bars and a standard toilet with grab bars. The patient has a hospital bed, lift chair , home O2 and a 4 wheeled walker.) Precautions: Davis, Fall - Time With Patient Total Time Spent With Patient (Min): 30 Treatment Procedures: Detail (Initial Evaluation, low complexity.) Subjective Information - Subjective Information Per Patient (The patient has complaints of decreased endurance with activity and states her walking is not the same as it used to be. The patient denies pain but reports of tenderness in LE's.) Objective Data - Mental Status Patient Orientation: Oriented x3 - Visual Perception Appears within normal limits for therapeutic activities - ROM Not within normal limits (The patient's UE and LE AROM is WNL.) - Strength/Tone Not within normal limits (The patient's bilateral UE strength is generally 4+ to 5/5 and LE strength is 4+ to 5/5 except for L hip flexors which are 3+/5, hip adductors and abductors 4/5 and knee flexors 4-/5.) - Transfers Independent (The patient was independent with sit to and from stand transfer.) - Balance Balance Sitting: Good Balance Standing: Fair (The patient stood with wide base of support and required support of walker to stand.) - Gait Detail (The patient ambulated with front wheeled walker and 2 L of O2 a distance of 30 feet x 1 with CG of one due to unsteadiness with ambulation. The patient's gait pattern was characterized by decreased stride length, wide base of support and decreased heel to toe weight transfer (waddling gait pattern). The patient experienced shortness of breath after ambulating.) Therapy Assessment - Therapy Assessment Detail (The patient exhibits unsteady gait pattern, limited ambulation distance and shortness of breath with ambulation and decreased L LE strength in some muscle groups. The patient would benfit from inpt. PT to improve stability of gait, L LE strength and endurance for ambulation house hold distances. Pt. would also benefit from Home health PT to evaluate safety of ambulation in a home envi ronment.) Problem List - Problem List Physical Therapy Problem List: Detail (1) Impaired ambulation 2) Shortness of breath with ambulation household distances with 2 L of O2 3) Decreased L LE strength) Goals - Goals Physical Therapy Goals: 1) The patient will ambulate distances of 40 to 50 feet with assistive device Independently with 2L of O2 with minimal to no shortness of breath. 2) The patient will tolerate 15 minutes of physical activity with one rest period. 3) Increase L LE strength in weak muscles 1/3 muscle grade to increase stability of gait pattern. Prognosis - Prognosis Good Plan - Plan Physical Therapy Plan: PT daily for gait training and LE strengthening and muscular endurance exercises.
[2019-09-07] MEDS ORDERED: CEFDINIR 300 MG CAPSULE PO ONE (17:04)
[2019-09-07] MEDS: GLIPIZIDE 5 MG TABLET PO SCH (17:08)
--- NOTE | 2019-09-07 17:44 | Physician Progress Note ---
Subjective - Date Date of Physician Progress Note: 09/07/19 Objective - Vital Signs Vital Signs: Vital Signs - Last 24 Hrs Temp Pulse Resp BP Pulse Ox 09/07/19 09:00 65 20 09/07/19 05:00 98.0 F 65 20 149/63 96 09/06/19 21:00 98.0 F 81 18 191/72 98 09/06/19 20:17 20 - General General Appearance: Alert, Cooperative, No acute distress Limitations: Other (Minimal limitation, follows conversation mostly but occassionaly random deviation) - Head Head exam: Atraumatic, Normocephalic, Normal inspection Head exam detail: negative: Abrasion, Contusion, Hematoma, Laceration - Eye Eye exam: Normal appearance, PERRL. negative: Conjunctival injection, Scleral icterus - ENT ENT exam: Normal exam, Mucous membranes moist Ear exam: Normal external inspection Nasal Exam: Normal inspection Mouth exam: Normal external inspection - Neck Neck exam: Normal inspection, Full ROM. negative: Lymphadenopathy, Meningismus, Tenderness - Respiratory Respiratory exam: Normal lung sounds bilaterally. negative: Accessory muscle use, Chest wall tenderness, Decreased breath sounds, Respiratory distress, Rhonchi, Stridor, Wheezes - Cardiovascular Cardiovascular Exam: Regular rate, Normal rhythm, Normal heart sounds Peripheral Pulses: 2+: Radial (R), Radial (L) - GI/Abdominal GI/Abdominal exam: Soft. negative: Tenderness - Rectal Rectal exam: Deferred - exam: Deferred - Extremities Extremities exam: Normal inspection, Pedal edema (chronic skin changes). negative: Calf tenderness, Tenderness - Back Back exam: Denies: CVA tenderness (R), CVA tenderness (L) - Neurological Neurological exam: Alert, Altered, CN II-XII intact. negative: Motor sensory deficit - Psychiatric Psychiatric exam: Normal affect, Normal mood. negative: Agitated, Anxious - Skin Skin exam: Dry, Intact, Normal color, Warm Assessment and Plan - Assessment and Plan (1) Confusion Current Visit: Yes Status: Acute Base Code: R41.0 - DISORIENTATION, UN SPECIFIED Comment: 09/07/19 -pt to d/c to [facility] tomorrow - 09/06/19 -pt a&ox4, sitting in recliner -glucose 40 in ER, UTI per UA -pt has meds pre packaged but administers insulin by herself, concerns for over mediating r/t confusion (2) Hypoglycemia Current Visit: Yes Status: Acute Base Code: E16.2 - HYPOGLYCEMIA, UNSPECIFIED Comment: 09/07/19 -glucose increasing, return to PO DM, holding levermir 09/06/19 -40 in ER, given amp d50, dropped again before dinner -no levermir or other DM meds (3) Physical deconditioning Current Visit: Yes Status: Acute Base Code: R53.81 - OTHER MALAISE Comment: 09/07/19 -PT eval suggests PT daily, pt to go to [facility] tomorrow 09/06/19 -pt needed x3 assist to stand an ambulate to scale and back to recliner -PT eval tomorrow -pt up with assist (4) Urinary tract infection Current Visit: Yes Status: Acute Base Code: N39.0 - URINARY TRACT INFECTION, SITE NOT SPECIFIED Comment: 09/07/19 -IV went bad, transition to PO ABX, cefdnir 300mg BID 10 days 09/06/19 - UA + for leukocytes, nitirites and +2 bacteria - UCX pending - Continue on Rocephin 1 gm bid (5) DNR (do not resuscitate) Current Visit: No Status: Acute Base Code: Z66 - DO NOT RESUSCITATE Comme nt: 09/07/19: - Patient is DNR. Results - Labs Result Diagrams: 09/07/19 06:30 09/07/19 06:30 Labs Last 24 Hours: Laboratory Results - last 24 hr 09/06/19 09/06/19 09/06/19 17:00 17:08 18:20 WBC RBC Hgb Hct MCV MCH MCHC RDW Plt Count MPV Gran % Lymphocytes % Monocytes % Eosinophils % Basophils % Absolute Neutrophils Sodium Potassium Chloride Carbon Dioxide Anion Gap BUN Creatinine Estimated GFR POC Glucose Cancelled 42 L* 84 Random Glucose Calcium 09/06/19 09/07/19 09/07/19 22:00 02:00 06:30 WBC 6.8 RBC 4.25 Hgb 9.6 L Hct 34.8 L MCV 81.9 MCH 22.5 L MCHC 27.6 L RDW 16.8 H Plt Count 270 MPV 9.5 Gran % 60.8 Lymphocytes % 24.2 Monocytes % 9.7 H Eosinophils % 5.0 Basophils % 0.3 Absolute Neutrophils 4.11 Sodium Potassium Chloride Carbon Dioxide Anion Gap BUN Creatinine Estimated GFR POC Glucose 215 H 161 H Random Glucose Calcium 09/07/19 09/07/19 09/07/19 06:30 10:08 15:20 WBC RBC Hgb Hct MCV MCH MCHC RDW Plt Count MPV Gran % Lymphocytes % Monocytes % Eosinophils % Basophils % Absolute Neutrophils Sodium 144 Potassium 4.7 H Chloride 103 Carbon Dioxide 32.0 H Anion Gap 9.0 BUN 18 Creatinine 1.2 H Estimated GFR 45 POC Glucose 188 H 317 H Random Glucose 118 H Calcium 9.7 DVT/PE Assessment - Risk for VTE Risk for VTE: No Risk Level: Moderate Risk Assessment Date: 09/07/19 Risk Assessment Time: 17:23 VTE Orders Placed or Will Be Placed: Yes - Active Medicaitons Current Medications: Current Medications Aspirin (Ecotrin (Ec)) 81 mg PO DAILY [facility] Last Admin: 09/07/19 13:53 Dose: 81 mg Documented by: Cefdinir (Cefdinir) 300 mg PO BID [facility] Stop: 09/18/19 10:01 Duloxetine HCl (Cymbalta) 60 mg PO DAILY [facility] Last Admin: 09/07/19 13:52 Dose: 60 mg Documented by: Furosemide (Lasix) 10 mg PO DAILY [facility] Last Admin: 09/07/19 13:52 Dose: 10 mg Documented by: Glipizide (Glucotrol) 10 mg PO BIDAC [facility] Last Admin: 09/07/19 17:08 Dose: 10 mg Documented by: Losartan Potassium (Cozaar) 50 mg PO DAILY [facility] Last Admin: 09/07/19 13:53 Dose: 50 mg Documented by: Metformin HCl (Glucophage Xr) 500 mg PO DAILY [facility] Last Admin: 09/07/19 13:52 Dose: 500 mg Documented by: Nystatin (Nystop) 15 gm TP ASDIR PRN PRN Reason: RASH Pantoprazole Sodium (Protonix) 40 mg PO DAILYAC [facility] Last Admin: 09/07/19 13:52 Dose: 40 mg Documented by: Pramipexole Dihydrochloride (Pramipexole Dihydrochloride) 0.25 mg PO DAILY [facility] Last Admin: 09/07/19 13:52 Dose: 0.25 mg Documented by: Pramipexole Dihydrochloride (Pramipexole Dihydrochloride) 0.75 mg PO QHS [facility] AMI Plan - Labs Result Diagrams: 12/16/19 06:30 09/07/19 06:30
[2019-09-07] MEDS ORDERED: ACETAMINOPHEN 500 MG TABLET PO PRN (21:50)
[2019-09-07] MEDS ORDERED: CEFDINIR 300 MG CAPSULE PO SCH (22:00)
[2019-09-07] MEDS: CLONIDINE HCL 0.1 MG TABLET PO PRN (23:32)
[2019-09-08] MEDS: PANTOPRAZOLE SODIUM 40 MG TABLET PO SCH (06:55)
[2019-09-08] MEDS: GLIPIZIDE 5 MG TABLET PO SCH ×2 (06:55→18:07)
--- NOTE | 2019-09-08 07:51 | Discharge Note ---
VTE H&P Assessment - Risk for VTE Risk for VTE: Yes Risk Level: Moderate Risk Assessment Date: 09/07/19 Risk Assessment Time: 17:23 VTE Orders Placed or Will Be Placed: Yes Discharge Medications - Discharge Medications Prescriptions: Cefdinir 300 mg PO BID #20 capsule Insulin Aspart [Novolog Flexpen] 1 unit SQ TIDINS #1 ml Insulin Aspart [Novolog Flexpen] 1 unit SQ TIDINS #1 ml Nystatin [Nystop] 15 gm TP BID PRN #1 bottle PRN Reason: Rash Home Medications: Ambulatory Orders Duloxetine HCl [Cymbalta] 60 mg PO DAILY 04/01/14 [Last Taken 03/22/19] Glipizide 10 mg PO BID 04/01/14 [Last Taken 03/22/19] Isosorbide Dinitrate 10 mg PO BID 04/01/14 [Last Taken 03/22/19] Loratadine [Claritin] 10 mg PO QHS 04/01/14 [Last Taken 03/22/19] Lovastatin 40 mg PO DAILY 04/01/14 [Last Taken 03/22/19] Meloxicam [Mobic] 15 mg PO DAILY 04/01/14 [Last Taken 03/22/19] Omeprazole Magnesium [Prilosec Otc] 20 mg PO DAILY 04/01/14 [Last Taken 03/22/19] Metformin HCl [Metformin HCl ER] 500 mg PO QAM 09/14/18 [Last Taken 03/22/19] Aspirin [Aspirin EC] 81 mg PO DAILY 06/25/19 [Last Taken Unknown] Calcium Carb/Mag Oxide/Cu/Zinc [Ra Yrcigvk-[id number]-Pupe Tablet] 1 each PO DAILY 06/25/19 [Last Taken Unknown] Losartan Potassium 50 mg PO DAILY 06/25/19 [Last Taken Unknown] Multivitamin [Multi-Vitamin Daily] 1 each PO DAILY 06/25/19 [Last Taken Unknown] Acetaminophen [Tylenol 500Mg Tab] 1,000 mg PO Q6H PRN tablet 06/29/19 [Last Taken Unknown] Albuterol Sulfate [Proair Hfa] 2 puff IH Q4H PRN 06/29/19 [Last Taken Unknown] Furosemide [Lasix] 10 mg PO DAILY tablet 06/29/19 [Last Taken Unknown] Pramipexole Di-HCl [Pramipexole Dihydrochloride] 0.25 mg PO DAILY tablet 06/29/19 [Last Taken Unknown] Pramipexole Di-HCl [Pramipexole Dihydrochloride] 0.75 mg PO QHS tablet 06/29/19 [Last Taken Unknown] Acetaminophen [Tylenol 500Mg Tab] 1,000 mg PO Q6H PRN tablet 09/08/19 [Last Taken Unknown] Aspirin Enteric-Coated [Ecotrin (EC)] 81 mg PO DAILY tabec 09/08/19 [Last Taken Unknown] Cefdinir 300 mg PO BID #20 capsule 09/08/19 [Last Taken Unknown] Duloxetine HCl [Cymbalta] 60 mg PO DAILY capsule. 09/08/19 [Last Taken Unknown] Furosemide [Lasix] 10 mg PO DAILY tablet 09/08/19 [Last Taken Unknown] Glipizide [Glucotrol] 10 mg PO BIDAC tablet 09/08/19 [Last Taken Unknown] Insulin Aspart [Novolog Flexpen] 1 unit SQ TIDINS #1 ml 09/08/19 [Last Taken Unknown] Insulin Aspart [Novolog Flexpen] 1 unit SQ TIDINS #1 ml 09/08/19 [Last Taken Unknown] Losartan Potassium [Cozaar] 50 mg PO DAILY tablet 09/08/19 [Last Taken Unknown] Metformin ER HCl [Glucophage Xr] 500 mg PO DAILY tab.er.24h 09/08/19 [Last Taken Unknown] Nystatin [Nystop] 15 gm TP BID PRN #1 bottle 09/08/19 [Last Taken Unknown] Discharge Note - Date Date of Discharge Note: 09/08/19 Condition: (2) Stable Additional Instructions: follow up with Dr Molina in 3 to 7 days stop lantus may need later use novolog before meals one unit for every 20 mg /dl over 180 check acucheck four times a day cefdinir 300 mg twice a day for UTI Forms: Patient Portal Access
[2019-09-08] MEDS: CLONIDINE HCL 0.1 MG TABLET PO PRN (08:00)
[2019-09-08] MEDS ORDERED: MAGNESIUM HYDROXIDE 30 ML UDC PO ONE (08:47)
[2019-09-08] MEDS: NOVOLOG FLEXPEN (INSULIN ASPART) 100 UNITS/ML SQ SCH ×3 (09:26→18:06)
[2019-09-08] MEDS: CEFDINIR 300 MG CAPSULE PO SCH ×2 (09:29→21:24)
[2019-09-08] MEDS: LOSARTAN POTASSIUM 25 MG TABLET PO SCH (09:30)
[2019-09-08] MEDS: DULOXETINE HCL 30 MG CAPSULE.DR PO SCH (09:30)
[2019-09-08] MEDS: METFORMIN ER HCL 500 MG TAB.ER.24H PO SCH (09:31)
[2019-09-08] MEDS: ASPIRIN 81 MG TABEC PO SCH (09:31)
[2019-09-08] MEDS: FUROSEMIDE 20 MG TABLET PO SCH (09:31)
[2019-09-08] MEDS: ENOXAPARIN 30 MG/0.3 ML SYR SQ SCH (09:32)
[2019-09-08] MEDS: PRAMIPEXOLE DI-HCL 0.25 MG TABLET PO SCH ×2 (09:32→21:23)
--- NOTE | 2019-09-08 11:29 | Physical Therapy Tx Note ---
Physical Therapy Tx Note - Treatment Note Tolerated: Good Total Time Spent With Patient: 15 Physical Therapy Tx Note: Detail (The patient was in bathroom when PT arrived. The patient ambulated with front wheeled walker 20 feet x 1 with supervision for safety and 1 L of O2. SpO2% was 87 and returned to 90 in 1 minute with deep breathing techniques. The patient completed the following LE exercise all x 5- 10 reps hip marching, LAQ, heel slides, ankle pumps, hip adductor squeezes,resisted hip abduction. The patient's SPO2 remained in the 90's. The patient was left in chair with call light within reach.) Physical Therapy Problem List: Detail (1) Impaired ambulation 2) Shortness of breath with ambulation household distances with 2 L of O2 3) Decreased L LE strength) Physical Therapy Goals: 1) The patient will ambulate distances of 40 to 50 feet with assistive device Independently with 2L of O2 with minimal to no shortness of breath. 2) The patient will tolerate 15 minutes of physical activity with one rest period. 3) Increase L LE strength in weak muscles 1/3 muscle grade to increase stability of gait pattern. Physical Therapy Plan: PT daily for gait training and LE strengthening and muscular endurance exercises.
--- NOTE | 2019-09-08 12:51 | Discharge Summary ---
DATE: 09/08/2019 at 7:30 a.m. DISCHARGE DIAGNOSES: 1. Hypoglycemia. 2. Urinary tract infection. 3. Diabetes mellitus type 2. 4. Chronic obstructive pulmonary disease and on home oxygen 2L/min. 5. Obstructive sleep apnea. 6. Hypertension. 7. Urinary incontinence. 8. Confusion. This possibly could be medication administration problems at home, so going to [facility] will be helpful on monitoring her sugars and administering her medications. She did have some confusion when she came into the hospital, which has cleared. 9. She also has physical deconditioning and gets around with a walker slowly. 10. She is Do Not Resuscitate. ATTENDING PHYSICIAN: Blaine Cesar DO REASON FOR HOSPITALIZATION: Hypoglycemia and urinary tract infection. She was seen in the emergency department by Dr. Mansfield. Her sugars are running about 40 and she was just slightly confused with that. The confusion has been going on for 4-5 days according to her daughter. She thought it possibly could be a urinary tract infection. The patient was given D50 in the emergency department. Her sugar came up and her mentation improved. She was also started on Rocephin 1 g IV for her urinary tract infection and switched over to cefdinir 300 mg b.i.d. Her primary physician is Dr. Molina. SIGNIFICANT FINDINGS: Sugar of 40 in the emergency department. Her hemoglobin has been 9.6 and stable. White count 6800. Her sugars on the day of discharge, the morning sugar was 207 before breakfast. Her blood pressure was running a little bit high. She was given clonidine 0.1 mg orally and she was started back up on her blood pressure medications. This may need to be adjusted as an outpatient. She has been put back on her oral pills of Glucotrol 10 mg b.i.d., metformin 500 mg once a day, which is a long-acting metformin. We will cover to scale by only at mealtimes 1 unit per every 20 mg/dL over 180. THERAPY PROVIDED: She was monitored for sugars and given her medications. HOSPITAL COURSE: She is improved. She is walking with a walker but very slow and only really comfortable walking about 10 steps. CONDITION ON DISCHARGE: Improved. DISCHARGE INSTRUCTIONS: Follow up with Dr. Molina in 3-7 days. Accu-Chek 4 times a day at [facility]. NovoLog to cover 1 unit per 20 mg/dL over 180. Stop the Lantus. May need to have to add that back if her sugar continues to go up after her meals and checking of her glucose and administration of her medication is regulated. Also cefdinir 300 mg b.i.d. for her urinary tract infection. She is going to continue with the nystatin powder twice a day under the folds of her skin. Cymbalta 60 mg daily. Glipizide 10 mg b.i.d. Isosorbide 10 mg b.i.d. Claritin 10 mg at bedtime. Continue the lovastatin 40 mg daily. Meloxicam 50 mg daily. Omeprazole 20 mg daily. Metformin 500 mg extended release once a day. Aspirin 81 mg daily. Calcium, magnesium, and vitamins once a day. Losartan 50 mg daily. Multivitamin once a day. Tylenol p.r.n. ProAir 2 puffs q.4 h. p.r.n. Lasix 10 mg daily. Continue the pramipexole 0.25 in the daytime and a.m. and same medication, pramipexole 0.75 mg at night. Aspirin 81 mg a day. MTDD
--- NOTE | 2019-09-08 15:45 | RADIOLOGY REPORT ---
EXAMINATION: Single View Chest EXAM DATE: 09/08/2019 3:26 PM TECHNIQUE: Single view chest INDICATION: Admission to assisted living COMPARISON: 04/01/2014 ENCOUNTER: Not applicable FINDINGS: There is cardiomegaly and vascular congestion. There is no consolidation, pneumothorax, or pleural ef fusion. IMPRESSION: Mild congestive heart failure Dictated by: Addy Heredia DO on 09/08/2019 3:42 PM. .
[2019-09-09] MEDS: GLIPIZIDE 5 MG TABLET PO SCH (06:50)
[2019-09-09] MEDS: PANTOPRAZOLE SODIUM 40 MG TABLET PO SCH (06:50)
[2019-09-09] MEDS: NOVOLOG FLEXPEN (INSULIN ASPART) 100 UNITS/ML SQ SCH (08:32)
[2019-09-09] MEDS: ENOXAPARIN 30 MG/0.3 ML SYR SQ SCH (09:16)
[2019-09-09] MEDS: LOSARTAN POTASSIUM 25 MG TABLET PO SCH (09:17)
[2019-09-09] MEDS: CEFDINIR 300 MG CAPSULE PO SCH (09:17)
[2019-09-09] MEDS: DULOXETINE HCL 30 MG CAPSULE.DR PO SCH (09:17)
[2019-09-09] MEDS: METFORMIN ER HCL 500 MG TAB.ER.24H PO SCH (09:18)
[2019-09-09] MEDS: ASPIRIN 81 MG TABEC PO SCH (09:18)
[2019-09-09] MEDS: FUROSEMIDE 20 MG TABLET PO SCH (09:18)
[2019-09-09] MEDS: PRAMIPEXOLE DI-HCL 0.25 MG TABLET PO SCH (09:18)
[2019-09-09] MEDS: CLONIDINE HCL 0.1 MG TABLET PO PRN (09:27)
[2019-09-09] MEDS ORDERED: FUROSEMIDE 20 MG TABLET PO ONE (09:59)
[2019-09-09 10:11] LABS: CREATININE 1.2 mg/dL (0.5-0.9)
[2019-09-09 10:19] LABS: NTpro B-NATRIURETIC PEPTIDE 496.9 pg/mL (<450)
[2019-09-09] MEDS ORDERED: NOVOLOG FLEXPEN (INSULIN ASPART) 100 UNITS/ML SQ SCH (11:45)
--- NOTE | 2019-09-09 12:55 | Discharge Note ---
VTE H&P Assessment - Risk for VTE Risk for VTE: Yes Risk Level: Moderate Risk Assessment Date: 09/07/19 Risk Assessment Time: 17:23 VTE Orders Placed or Will Be Placed: Yes Discharge Medications - Discharge Medications Prescriptions: Clonidine HCl [Catapres] 0.1 mg PO BID PRN #60 tablet PRN Reason: HTN Cefdinir 300 mg PO BID #20 capsule Insulin Aspart [Novolog Flexpen] 1 unit SQ TIDINS #1 ml Insulin Aspart [Novolog Flexpen] 1 unit SQ TIDINS #1 ml Insulin Aspart [Novolog Flexpen] 1 unit SQ TIDINS #15 ml Nystatin [Nystop] 15 gm TP BID PRN #1 bottle PRN Reason: Rash Home Medications: Ambulatory Orders Duloxetine HCl [Cymbalta] 60 mg PO DAILY 04/01/14 [Last Taken 03/22/19] Glipizide 10 mg PO BID 04/01/14 [Last Taken 03/22/19] Isosorbide Dinitrate 10 mg PO BID 04/01/14 [Last Taken 03/22/19] Loratadine [Claritin] 10 mg PO QHS 04/01/14 [Last Taken 03/22/19] Lovastatin 40 mg PO DAILY 04/01/14 [Last Taken 03/22/19] Meloxicam [Mobic] 15 mg PO DAILY 04/01/14 [Last Taken 03/22/19] Omeprazole Magnesium [Prilosec Otc] 20 mg PO DAILY 04/01/14 [Last Taken 03/22/19] Metformin HCl [Metformin HCl ER] 500 mg PO QAM 09/14/18 [Last Taken 03/22/19] Aspirin [Aspirin EC] 81 mg PO DAILY 06/25/19 [Last Taken Unknown] Calcium Carb/Mag Oxide/Cu/Zinc [Ra Wuqpgih-Ehv-Wdua Tablet] 1 each PO DAILY 06/25/19 [Last Taken Unknown] Losartan Potassium 50 mg PO DAILY 06/25/19 [Last Taken Unknown] Multivitamin [Multi-Vitamin Daily] 1 each PO DAILY 06/25/19 [Last Taken Unknown] Acetaminophen [Tylenol 500Mg Tab] 1,000 mg PO Q6H PRN tablet 06/29/19 [Last Taken Unknown] Albuterol Sulfate [Proair Hfa] 2 puff IH Q4H PRN 06/29/19 [Last Taken Unknown] Furosemide [Lasix] 10 mg PO DAILY tablet 06/29/19 [Last Taken Unknown] Pramipexole Di-HCl [Pramipexole Dihydrochloride] 0.25 mg PO DAILY tablet 06/29/19 [Last Taken Unknown] Pramipexole Di-HCl [Pramipexole Dihydrochloride] 0.75 mg PO QHS tablet 06/29/19 [Last Taken Unknown] Acetaminophen [Tylenol 500Mg Tab] 1,000 mg PO Q6H PRN tablet 09/08/19 [Last Taken Unknown] Aspirin Enteric-Coated [Ecotrin (EC)] 81 mg PO DAILY tabec 09/08/19 [Last Taken Unknown] Cefdinir 300 mg PO BID #20 capsule 09/08/19 [Last Taken Unknown] Duloxetine HCl [Cymbalta] 60 mg PO DAILY capsule. 09/08/19 [Last Taken Unknown] Furosemide [Lasix] 10 mg PO DAILY tablet 09/08/19 [Last Taken Unknown] Glipizide [Glucotrol] 10 mg PO BIDAC tablet 09/08/19 [Last Taken Unknown] Insulin Aspart [Novolog Flexpen] 1 unit SQ TIDINS #1 ml 09/08/19 [Last Taken Unknown] Insulin Aspart [Novolog Flexpen] 1 unit SQ TIDINS #1 ml 09/08/19 [Last Taken Unknown] Losartan Potassium [Cozaar] 50 mg PO DAILY tablet 09/08/19 [Last Taken Unknown] Metformin ER HCl [Glucophage Xr] 500 mg PO DAILY tab.er.24h 09/08/19 [Last Taken Unknown] Nystatin [Nystop] 15 gm TP BID PRN #1 bottle 09/08/19 [Last Taken Unknown] Clonidine HCl [Catapres] 0.1 mg PO BID PRN #60 tablet 09/09/19 [Last Taken Unknown] Insulin Aspart [Novolog Flexpen] 1 unit SQ TIDINS #15 ml 09/09/19 [Last Taken Unknown] Discharge Note - Date Date of Discharge Note: 09/09/19 [facility] Condition: (2) Stable Additional Instructions: follow up with Dr Molina in 3 to 7 days stop lantus may need later use novolog before meals one unit for every 20 mg /dl over 180 check acucheck four times a day cefdinir 300 mg twice a day for UTI start clonidine 0.1 mg twice a day Prescriptions: Cefdinir 300 mg PO BID #20 capsule Insulin Aspart [Novolog Flexpen] 1 unit SQ TIDINS #1 ml Insulin Aspart [Novolog Flexpen] 1 unit SQ TIDINS #1 ml Nystatin [Nystop] 15 gm TP BID PRN #1 bottle PRN Reason: Rash Referrals: Kyler Molina D.O. [Primary Care Provider] - Forms: Patient Portal Access
--- NOTE | 2019-09-10 07:37 | Cardiology Consult ---
DATE OF CONSULTATION: 09/09/2019 Ms. Arredondo is [id number] who was seen in consultation for pulmonary congestion on chest x-ray. She presented to [facility] on 09/06/2019 with four to five days of confusion. She was brought to the [facility] by her daughter. She was noted to be hypoglycemic and had mild acute kidney injury. She has been treated for urinary tract infection during her hospital course. She has no history of coronary artery disease. She has no history of congestive heart failure. She is currently laying in bed flat with no respiratory issues. Her chest x-ray did demonstrate some mild congestion. She was given Furosemide 20 mg IV. She is scheduled to be discharged to a jail later today. She currently denies angina, palpitations, TIA, syncope, or heart failure symptoms. PAST MEDICAL HISTORY: Includes chronic obstructive pulmonary disease secondary to tobacco use, obstructive sleep apnea, morbid obesity and diabetes mellitus. PAST SURGICAL HISTORY: Cholecystectomy. MEDICATIONS AT HOME: Include Furosemide 10 mg daily, insulin 1 unit subcu t.i.d. and Pramipexole 0.25 mg daily and 0.75 mg q.h.s. ALLERGIES: She denies any allergies. SOCIAL HISTORY: She lived with her daughter. She is currently going to a jail. She has a history of one pack a day smoking and states she quit in 1973. FAMILY HISTORY: Noncontributory. LABORATORY PROFILE: Her white count is 7, hemoglobin is 9.7, platelets are 260,000, sodium is 143, potassium is 4.8, BUN is 21, creatinine is 1.3, pro-BNP was 496, TSH was 4.45. PHYSICAL EXAMINATION: She is afebrile. Blood pressure is 157/69, pulse is 68, respirations are 12, oxygen saturation is 95% on room air. LUNGS: Clear currently. CARDIAC: Normal. ABDOMEN: Soft, obese. EXTREMITIES: Reveal chronic venostasis with hyperpigmented skin. Echocardiogram at bedside demonstrated a normal ejection fraction with no wall motion abnormalities. There was no significant structural abnormalities noted. IMPRESSION: 1. PULMONARY CONGESTION ON CHEST X-RAY. 2. CONFUSION SECONDARY TO HYPOGLYCEMIA. 3. URINARY TRACT INFARCTION. 4. DIABETES MELLITUS. 5. COPD. 6. OBSTRUCTIVE SLEEP APNEA. PLAN: Ms. Arredondo appears to be stable from a cardiovascular standpoint. There appears to be no evidence for acute systolic and diastolic congestive heart failure. Her pro-BNP is appropriate for her age. She may have gotten some IV fluids during her hospitalization contributing to her pulmonary congestion. Recommend she be discharged with Furosemide 10 mg daily due to her chronic venostasis. No further cardiac testing otherwise is required. She can be discharged to a jail as planned. JOB NUMBER: [id number] MTDD
--- NOTE | 2019-09-11 10:54 | Discharge Summary ---
This is a revision discharge. ADDENDUM After the cardiology consult with Dr. Clinton, he felt she did not have congestive heart failure, maybe a little excess fluid from IV fluids. He recommended keeping the Lasix at 10 mg a day. The echocardiogram showed a normal ejection fraction, and the BNP being up that small amount of elevation for her age is reasonable. At this point, no congestive heart failure. Echocardiogram was normal for her age and to follow up with Dr. Molina and Cardiology p.r.n. if anything further develops. DATE: 09/09/2019 DISCHARGE DIAGNOSES: 1. Hypoglycemia secondary to chronic renal failure. 2. Urinary tract infection being treated with cefdinir 300 mg b.i.d. 3. Diabetes mellitus type 2, slightly uncontrolled because of her chronic renal failure. 4. Chronic obstructive pulmonary disease on home oxygen 2L/minute. 5. Obstructive sleep apnea. 6. Hypertension. 7. Urinary incontinence. 8. Chronic renal failure. BUN 21, creatinine is 1.2 on discharge, potassium 4.4. 9. Chest x-ray showing pulmonary congestion. Increased her Lasix to 20 mg a day. Her BUN and creatinine will need to be followed. 10. Brain natriuretic peptide up slightly. We will obtain a consult with Dr. Clinton. Possible congestive heart failure. Echocardiogram is pending and a consult with Dr. Clinton is pending. 11. 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 Will be given Bactroban ointment twice a day for 5 days. ATTENDING PHYSICIAN: Blaine Cesar DO REASON FOR HOSPITALIZATION: Hypoglycemia, urinary tract infection. She was seen in the emergency department by Dr. Mansfield. Her sugars were running about 40 and she was just slightly confused with that. The confusion had been going on for 4 or 5 days according to the daughter. She thought possibly it could be a urinary tract infection. The patient was given D50 in the emergency department and her confusion started to clear. Her sugars came up. She was started on Rocephin 1 g IV and then switched over to oral cefdinir 300 mg b.i.d. for the urinary tract infection. Primary physician is Dr. Molina. SIGNIFICANT FINDINGS: Sugar of 40 in the emergency department. Her hemoglobin was 9.6 and stable, white count 6800. Her sugars on the day of discharge, the morning sugar was 165. Her blood pressure is running slightly high, 198/86. The Lasix was increased slightly because of pulmonary congestion and rales in the bases to 20 mg a day, which will hopefully bring her blood pressure down slightly. This may need to be adjusted as an outpatient. She was also put back on her oral pills of Glucotrol 10 mg b.i.d., metformin 500 mg once a day, which is the long-acting metformin. Switched her over to scale insulin of NovoLog 1 unit for every 20 mg/dL over 200 at mealtimes only. Her brain natriuretic peptide was up slightly at 496. The normal is 450. Echocardiogram is pending. Dr. Clinton consult is pending. Chest x-ray showing pulmonary congestion. Also, nasal swab was done which showed positive for MRSA colonization. She had a MRSA infection about 4 years ago and Infectious Disease wanted a nasal culture done. Because of this finding, we will give her Bactroban ointment to the nose twice a day for 5 days. HOSPITAL COURSE: She is improved. She is walking with a walker but very slow and only really comfortable walking about 10 steps. CONDITION ON DISCHARGE: Improved. DISCHARGE INSTRUCTIONS: Follow up with Dr. Molina in 3-7 days. Accu-Chek 4 times a day at [facility]. Stop the Lantus insulin. May need to add this back if her sugars continue to go up if the short-acting insulin does not do the job for her. Pending: Echocardiogram and a consult with Dr. Clinton. MEDICATIONS: 1. NovoLog Regular insulin to cover 1 unit per 20 mg/dL over 200. 2. Cefdinir 300 mg b.i.d. for 10 days for urinary tract infection. 3. Nystatin powder twice a day under the folds of the skin for 10 days. 4. Cymbalta 60 mg daily. 5. Glipizide 10 mg b.i.d. 6. Isosorbide 10 mg b.i.d. 7. Claritin 10 mg at bedtime. 8. Continue the losartan 40 mg a day. 9. Continue the meloxicam 50 mg daily. 10. Omeprazole 20 mg a day. 11. Metformin 500 mg extended response once a day. 12. Aspirin 81 mg daily. 13. Calcium/magnesium/vitamins once a day. 14. Losartan 50 mg daily. 15. Multivitamin once a day. 16. Tylenol p.r.n. 17. ProAir 2 puffs q.4 h. p.r.n. 18. Lasix 20 mg a day. 19. Continue the pramipexole 0.25 mg in the a.m. and also pramipexole 0.75 mg at bedtime. MTDD
== END 2019-09-09 15:00 | DRG 641 ==
LOC: ER 10:42 → MEDSURG 13:32
PROVIDERS: ADMIT Internal Medicine; ATTEND Internal Medicine
DX: E16.2 Hypoglycemia, unspecified (principal); N39.0 Urinary tract infection, site not specified; L03.90 Cellulitis, unspecified; J44.9 Chronic obstructive pulmonary disease, unspecified; R53.81 Other malaise; I10 Essential (primary) hypertension; E11.9 Type 2 diabetes mellitus without complications; Z79.4 Long term (current) use of insulin; Z79.84 Long term (current) use of oral hypoglycemic drugs; R32 Unspecified urinary incontinence; Z99.81 Dependence on supplemental oxygen; R60.9 Edema, unspecified; M19.90 Unspecified osteoarthritis, unspecified site; Z87.891 Personal history of nicotine dependence; Z66 Do not resuscitate; Z86.14 Personal history of Methicillin resistant Staphylococcus aureus infection; I89.0 Lymphedema, not elsewhere classified; A49.02 Methicillin resistant Staphylococcus aureus infection, unspecified site
CPT/HCPCS: 85025; 80053; 36416; 81001; 82948; 84443; 70450; J0696; 71045; 80048; 83880; 93005; 93306; 94761; 96365; 96374; 99223; 99233; 99239; 99285; J1650

== ENCOUNTER 2019-11-15 05:00 | Emergency (ER) | payer MEDICARE, BC ==
--- NOTE | 2019-11-15 05:13 | Emergency Department Record ---
History of Present Illness - General Stated Complaint: FALL Time Seen by Provider: 11/15/19 05:05 Source: Patient Mode of Arrival: Ambulatory Limitations: No limitations - History of Present Illness Initial Comments: 84 yo female presents from a local long-term after a fall. The patient was up this morning already. She was trying to tile picker something on the floor and fell backward. She hit the back of her head. She denies and pain. She did not have any LOC. No new neck, back, chest, or extremity pain. The patient states she is in her usually state of health. She denies any cough, fever, nausea, vomiting, diarrhea. She states she has chronic back pain but she does not want to consider any future surgery. She states her back pain is unchanged. She denies syncope or palpitations. EMS states no report of syncope. [facility] was unsure if she was anti-coagulated. After review of her mediation sheet on arrival she was noted to be on Lovenox. Trauma Alert was initiated. MD Complaint: Fall -: Minutes(s) Fall From: Standing When Fall Occurred: Just prior to arrival Fall Witnessed: Yes, by living facility staff Place Fall Occurred: custodial/SNF Loss of Consciousness: None Prolonged Down Time?: No Symptoms Prior to Fall: None Location: Head Severity: Mild Quality: Other (No pain) Context: Tripped/slipped Associated Symptoms: Denies - [place] Coma Scale Eye Response: (4) Open spontaneously Motor Response: (6) Obeys commands Verbal Response: (5) Oriented Magdy Total: 15 - Related Data Home Medications Medication Instructions Recorded Confirmed Last Taken Enoxaparin Sodium [Lovenox] 30 mg SC DAILY 11/15/19 11/15/19 Unknown Furosemide [Lasix] 10 mg PO BID 11/15/19 11/15/19 Unknown Pantoprazole Sodium [Protonix] 40 mg PO DAILY 11/15/19 11/15/19 Unknown Tramadol HCl 50 mg PO BID PRN 11/15/19 11/15/19 Unknown Previous Rx's Medication Instructions Recorded Pramipexole Di-HCl [Pramipexole 0.25 mg PO DAILY tablet 06/29/19 Dihydrochloride] Pramipexole Di-HCl [Pramipexole 0.75 mg PO QHS tablet 06/29/19 Dihydrochloride] Acetaminophen [Tylenol 500Mg Tab] 1,000 mg PO Q6H PRN tablet 09/08/19 Duloxetine HCl [Cymbalta] 60 mg PO DAILY capsule. 09/08/19 Insulin Aspart [Novolog Flexpen] 1 unit SQ TIDINS #1 ml 09/08/19 Losartan Potassium [Cozaar] 50 mg PO DAILY tablet 09/08/19 Metformin ER HCl [Glucophage Xr] 500 mg PO DAILY tab.er.24h 09/08/19 Nystatin [Nystop] 15 gm TP BID PRN #1 bottle 09/08/19 Clonidine HCl [Catapres] 0.1 mg PO BID PRN #60 tablet 09/09/19 Allergies Allergy/AdvReac Type Severity Reaction Status Date / Time No Known Drug Allergies Allergy Verified 09/06/19 10:54 Review of Systems Constitutional: Denies: Chills, Fever, Malaise, Weakness Eyes: Denies: Eye discharge, Eye pain, Photophobia, Vision change ENT: Denies: Congestion, Throat pain Respiratory: Denies: Cough, Dyspnea Cardiovascular: Denies: Chest pain, Palpitations, Syncope Endocrine: Denies: Fatigue Gastrointestinal: Denies: Abdominal pain, Diarrhea, Nausea, Vomiting Genitourinary: Denies: Dysuria Musculoskeletal: Reports: Arthralgia, Back pain. Denies: Joint swelling, Myalgia, Neck pain Skin: Denies: Bruising, Change in color Neurological: Denies: Confusion, Headache, Numbness, Weakness Psychiatric: Denies: Anxiety Hematological/Lymphatic: Denies: Easy bleeding, Easy bruising Past Medical History - SOCIAL HISTORY Smoking Status: Former smoker Alcohol Use Comment: Holidays Drug Use: None - RESPIRATORY Hx Respiratory Disorders: Yes Hx Bronchitis: Yes Hx COPD: Yes Hx Sleep Apnea: Yes Hx of CPAP: Yes (does not wear) Comment:: 02 2L all times - CARDIOVASCULAR Hx Cardio Disorders: Yes Hx Hypertension: Yes - NEURO Hx Neuro Disorders: No - GI Hx GI Disorders: No - Hx Genitourinary Disorders: Yes Hx Bladder Problem: Yes (incontinence) Hx UTI: Yes - ENDOCRINE Hx Endocrine Disorders: Yes Hx Diabetes: Yes (oral and insulin) Hx Thyroid Disease: No - MUSCULOSKELETAL Hx Musculoskeletal Disorders: Yes Hx Arthritis: Yes Hx Back Injury: Yes - PSYCH Hx Psych Problems: Yes Hx Anxiety: Yes Hx Depression: Yes - HEMATOLOGY/ONCOLOGY Hx Hematology/Oncology Disorders: No Family Medical History Hx Cancer: Father Hx Heart Disease: Mother Physical Exam - General General Appearance: Alert, Oriented x3, Cooperative, No acute distress, Other (Pleasant conversational) Limitations: No limitations - Head Head exam: Atraumatic, Normocephalic, Normal inspection - Eye Eye exam: negative: Normal appearance, PERRL, Conjunctival injection, Scleral icterus - ENT ENT exam: Normal exam, Mucous membranes moist Ear exam: Normal external inspection Nasal Exam: Normal inspection Mouth exam: Normal external inspection - Neck Neck exam: Normal inspection, Full ROM. negative: Tenderness - Respiratory Respiratory exam: Normal lung sounds bilaterally. negative: Accessory muscle use, Chest wall tenderness, Decreased breath sounds, Prolonged expiratory, Respiratory distress, Rhonchi, Stridor, Wheezes - Cardiovascular Cardiovascular Exam: Regular rate, Normal rhythm, Normal heart sounds Peripheral Pulses: 2+: Radial (R), Radial (L) - GI/Abdominal GI/Abdominal exam: Soft. negative: Distended, Guarding, Rebound, Rigid, Tenderness - Rectal Rectal exam: Deferred - exam: Deferred - Extremities Extremities exam: Normal inspection, Full ROM. negative: Tenderness - Back Back exam: Reports: Paraspinal tenderness, Tenderness (chronic per the patient). Denies: CVA tenderness (R), CVA tenderness (L) - Neurological Neurological exam: Alert, CN II-XII intact, Oriented X3. negative: Altered - Psychiatric Psychiatric exam: Normal affect, Normal mood. negative: Agitated, Anxious - Skin Skin exam: Dry, Intact, Normal color, Warm Course - Reevaluation(s) Reevaluation #1: The patient on arrival is not cooperative with the C-collar. On palpation she is not tender or with gentle ROM. Given her non tolerance it will be removed as she seems to move more with it on. The vitals on arrival were reviewed. No significant abnormalities. 11/15/19 05:14 11/15/19 05:31 The patient returned from CT No changes in her exam and no new complaints or pain 11/15/19 05:[address] scans of the head and cervical spine were reviewed No acute findings. No acute injuries. The patient remains conversational at her baseline She does not have any new concerns or symptoms DC to [facility] Disposition Disposition: Discharge Clinical Impression: Fall Qualifiers: Encounter type: initial encounter Qualified Code(s): W19.XXXA - Unspecified fall, initial encounter Head contusion Qualifiers: Encounter type: initial encounter Contusion of head detail: unspecified part of head Qualified Code(s): S00.93XA - Contusion of unspecified part of head, initial encounter Disposition: Home, Self-Care Condition: (1) Good Instructions: Fall Prevention for Older Adults (ED) Additional Instructions: Review this ER visit and the tests performed with your family doctor Return to the ER for a recheck immediately if worse, any new concerns or questions Time of Disposition: 06:04 Quality - Quality Measures Quality Measures: N/A - Blood Pressure Screening Does Patient Have Any of the Following: Active Dx of HTN Blood Pressure Classification: Hypertensive Reading Systolic Measurement: 158 Diastolic Measurement: 94 Screening for High Blood Pressure: Patient Exclusion, Hx of HTN [[id number]]
--- NOTE | 2019-11-15 05:44 | CT SCAN REPORT ---
EXAMINATION: CT Head without IV Contrast EXAM DATE: 11/15/2019 5:41 AM TECHNIQUE: Standard protocol CT images of the head were obtained without intravenous contrast. Dumont l and sagittal reconstructed images were created. INDICATION: fall backward, hit head COMPARISON: None HAND DOMINANCE: Unknown. ENCOUNTER: Not applicable FINDINGS: 1. There is no intracranial mass, midline shift, extraaxial fluid collection or hemorrhage. 2. The ventricles, sulci and cisterns are normal. 3. There are no suspicious area of altered attenuation. 4. There is no fracture. 5. The visualized aspects of the orbits, paranasal sinuses, and mastoid air cells are normal. IMPRESSION: No acute intracranial abnormalities appreciated Dictated by: Adalgisa Bingham DO on 11/15/2019 5:42 AM. .
--- NOTE | 2019-11-15 05:45 | CT SCAN REPORT ---
EXAMINATION: CT Cervical Spine without IV Contrast EXAM DATE: 11/15/2019 5:41 AM TECHNIQUE: Standard protocol cervical spine CT imaging was performed without intravenous contrast. Co jamey and sagittal images were reconstructed. INDICATION: fall backward, hit head COMPARISON: None ENCOUNTER: Not applicable FINDINGS: There is normal cervical alignment, curvature, vertebral body height, and disc height. Paraspinal soft tissues are unremarkable. Mild multilevel degenerative change. No evidence of acute fracture subluxation or perched facet IMPRESSION: Multilevel degenerative change. No evidence of fracture subluxation or perched facet Dictated by: Adalgisa Bingham DO on 11/15/2019 5:43 AM. .
== END 2019-11-15 07:00 | disposition home or self-care (01) ==
LOC: ER 05:00
DX: S00.93XA Contusion of unspecified part of head, initial encounter (principal); R51 Headache; M50.30 Other cervical disc degeneration, unspecified cervical region; I10 Essential (primary) hypertension; J44.9 Chronic obstructive pulmonary disease, unspecified; Z79.84 Long term (current) use of oral hypoglycemic drugs; Z79.4 Long term (current) use of insulin; Z79.01 Long term (current) use of anticoagulants; W01.198A Fall on same level from slipping, tripping and stumbling with subsequent striking against other object, initial encounter; Y92.129 Unspecified place in nursing home as the place of occurrence of the external cause
CPT/HCPCS: 70450; 72125; 99285